=== PATIENT | male | born 1975 | race Caucasian/White ===

== ENCOUNTER 2020-02-24 07:57 | Observation (INO) | payer OTHER ==
[2020-02-24] MEDS ORDERED: HEPARIN SODIUM,PORCINE 5,000 UNIT/ML 1 ML VIAL IV ONE (08:17)
[2020-02-24] MEDS ORDERED: HEPARIN SODIUM,PORCINE 5,000 UNIT/ML 1 ML VIAL IV PRN (08:17)
[2020-02-24] MEDS ORDERED: DILTIAZEM DRIP BOLUS FROM BAG 1 MG SOLN IV ONE (08:17)
[2020-02-24] MEDS ORDERED: SODIUM CHLORIDE 0.9% 500 ML 500 ML IV STA (08:17)
[2020-02-24] MEDS ORDERED: ASPIRIN 81 MG PO STA (08:17)
--- NOTE | 2020-02-24 08:23 | ED ---
Chest Pain HPI - General Source: patient, RN notes reviewed Mode of arrival: ambulatory Limitations: no limitations <Mundo Esqueda - Last Filed: 02/24/20 09:29> <Missy Dumont - Last Filed: 02/28/20 14:41> - General Chief Complaint: Chest Pain Stated Complaint: Shortness of Breath Time Seen by Provider: 02/24/20 08:09 - History of Present Illness Initial Comments: This is a 44-year-old male presents emergency Department chief complaint palpitations, discomfort. Patient states that symptoms started around 7:30 this morning. He states that he has no history of A. fib he has no prior cardiac disease other than he has a history of hypertension and family heart disease. Patient states she is scheduled for a stress test next week. Patient states this was just provided. Patient denies any abdominal pain, leg pain, leg swelling. Patient states he does take Zoloft currently. Patient denies any fevers chills no cough or cold-like symptoms. (Mundo Esqueda) - Related Data Home Medications Medication Instructions Recorded Confirmed Sertraline HCl [Zoloft] 50 mg PO DAILY 02/24/20 02/24/20 Previous Rx's Medication Instructions Recorded Apixaban [Eliquis] 5 mg PO BID 30 Days #60 tab 02/24/20 Acetaminophen Tab [Tylenol] 650 mg PO Q6HR PRN tab 02/26/20 Flecainide [Tambocor] 100 mg PO Q12HR #180 tab 02/26/20 Metoprolol Succinate (ER) [Toprol 50 mg PO DAILY #90 tab.er.24h 02/26/20 XL] Nitroglycerin Sl Tabs [Nitrostat] 0.4 mg SUBLINGUAL Q5M PRN #30 tab 02/26/20 amLODIPine [Norvasc] 10 mg PO DAILY 30 Days #30 tab 02/26/20 Allergies Allergy/AdvReac Type Severity Reaction Status Date / Time No Known Allergies Allergy Verified 02/24/20 08:43 Review of Systems ROS Other: All systems not noted in ROS Statement are negative. <Mundo Esqueda - Last Filed: 02/24/20 09:29> ROS Other: All systems not noted in ROS Statement are negative. <Missy Dumont - Last Filed: 02/28/20 14:41> ROS Statement: Those systems with pertinent positive or pertinent negative responses have been documented in the HPI. EKG Findings - EKG Comments: EKG Findings:: EKG performed at 8:13 A. fib with RVR left axis deviation with a rate of 144 QRS 100 QT/QTC 324/501 <YinMundo Boswell - Last Filed: 02/24/20 09:29> Past Medical History Past Medical History: No Reported History History of Any Multi-Drug Resistant Organisms: None Reported Past Surgical History: No Surgical Hx Reported Past Psychological History: Anxiety Smoking Status: Never smoker Past Alcohol Use History: None Reported Past Drug Use History: None Reported <Mundo Esqueda Andreia - Last Filed: 02/24/20 09:29> General Exam Limitations: no limitations General appearance: alert, in no apparent distress, other (Vitals reviewed, sebastien crawford is hypertensive and tachycardic) Head exam: Present: atraumatic, normocephalic, normal inspection Eye exam: Present: normal appearance, PERRL, EOMI. Absent: scleral icterus, conjunctival injection, periorbital swelling ENT exam: Present: normal exam, mucous membranes moist Neck exam: Present: normal inspection. Absent: tenderness, meningismus, lymphadenopathy Respiratory exam: Present: normal lung sounds bilaterally. Absent: respiratory distress, wheezes, rales, rhonchi, stridor Cardiovascular Exam: Present: tachycardia, irregular rhythm, normal heart sounds. Absent: regular rate, normal rhythm, systolic murmur, diastolic murmur, rubs, gallop, clicks GI/Abdominal exam: Present: soft, normal bowel sounds. Absent: distended, tenderness, guarding, rebound, rigid Extremities exam: Absent: pedal edema, calf tenderness Neurological exam: Present: alert, oriented X3, CN II-XII intact Skin exam: Present: warm, dry, intact, normal color. Absent: rash <YinMundo Boswell - Last Filed: 02/24/20 09:29> Course Vital Signs 02/24/20 02/24/20 02/24/20 08:04 08:19 08:40 Temperature 98.2 F Pulse Rate 111 H 134 H 117 H Pulse Rate [ Left] Respiratory 22 24 20 Rate Blood Pressure 171/119 162/118 159/111 Blood Pressure [Left Arm] O2 Sat by Pulse 100 98 97 Oximetry 11/02/24/20 02/24/20 09:11 09:13 09:58 Temperature Pulse Rate 113 H 96 Pulse Rate [ Left] Respiratory 24 16 Rate Blood Pressure 166/117 Blood Pressure [Left Arm] O2 Sat by Pulse 99 Oximetry 02/24/20 02/24/20 02/24/20 10:10 10:17 10:28 Temperature Pulse Rate 122 H 109 H 103 H Pulse Rate [ Left] Respiratory 22 20 16 Rate Blood Pressure 141/106 130/102 Blood Pressure [Left Arm] O2 Sat by Pulse 99 99 Oximetry 02/24/20 02/24/20 02/24/20 10:35 10:43 11:24 Temperature 97.7 F Pulse Rate 98 Pulse Rate [ 71 Left] Respiratory 16 16 Rate Blood Pressure 129/102 138/96 Blood Pressure 146/102 [Left Arm] O2 Sat by Pulse 98 99 Oximetry Chest Pain MDM <Mundo Esqueda - Last Filed: 02/24/20 09:29> <Missy Dumont - Last Filed: 02/28/20 14:41> - MDM 44-year-old male presented for palpitations chest discomfort area patient has evidence of A. fib RVR new onset. Patient's troponin is negative. Patient will be admitted for cardiology evaluation, further management and treatment. (Mundo Esqueda) I was available for consultation in the emergency department. The history and physical exam were done by the midlevel provider. I was consulted for this patients care. I reviewed the case with the midlevel provider and based on their presentation of the patient, I agree with the assessment, medical decision making and plan of care as documented. Chart was dictated using Vocollect dictation software. Attempts were made to correct any dictation errors however some typographical errors may persist. Patient was seen during a national state of emergency due to the Covid-19 pandemic. (Missy Dumont) Critical Care Time Critical Care Time: Yes Total Critical Care Time: 35 <Mundo Esqueda - Last Filed: 02/24/20 09:29> Critical Care Time: Total 35 minutes of critical care time were used initially evaluated the patient, reviewed past medical history according of EKG, labs, chest x-ray. Patient found to be and A. fib, RVR. Patient was started on Cardizem with a 10 mg bolus. Patient was also started on heparin as this is a new onset of A. fib. Patient's heart rate is improving. Patient's troponin is negative. Patient's case discussed with her attending physician with consultation to cardiology. (Mundo Esqueda) Disposition <Mundo Esqueda - Last Filed: 02/24/20 09:29> <Missy Dumont - Last Filed: 02/28/20 14:41> Clinical Impression: Atrial fibrillation with RVR Disposition: ADMITTED IP TO THIS HOSP Condition: Fair
[2020-02-24] MEDS: HEPARIN SOD,PORK IN 0.45% NACL 25,000 UNIT in 0.45% NACL 1 250ML.BAG IV SCH (08:34)
[2020-02-24] MEDS: DILTIAZEM 125 MG in SODIUM CHLORIDE 0.9% 100 ML IV SCH ×2 (08:38→19:55)
--- NOTE | 2020-02-24 09:08 | XR ---
EXAMINATION TYPE: XR chest 2V DATE OF EXAM: 02/24/2020 COMPARISON: None INDICATION: Chest pain tachycardia dizzy TECHNIQUE: Frontal and lateral views of the chest are obtained. FINDINGS: The heart size is normal. The pulmonary vasculature is normal. The lungs are clear. IMPRESSION: 1. No acute pulmonary process.
[2020-02-24] MEDS ORDERED: NITROGLYCERIN SL TABS 0.4 MG TAB SUBLINGUAL PRN (09:30)
[2020-02-24 09:31] LABS: Basophils # (A) 0.1 k/uL (0-0.2); Basophils % (A) 1 %; Eosinophils # (A) 0.2 k/uL (0-0.7); Eosinophils % (A) 2 %; HCT 49.8 % (39.0-53.0); HGB 16.8 gm/dL (13.0-17.5); Lymphocytes # (A) 2.8 k/uL (1.0-4.8); Lymphocytes % (A) 30 %; MCH 29.4 pg (25.0-35.0); MCHC 33.8 g/dL (31.0-37.0); MCV 87.2 fL (80.0-100.0); Mean Platelet Volume 8.1; Monocytes # (A) 0.6 k/uL (0-1.0); Monocytes % (A) 7 %; Neutrophils # (A) 5.4 k/uL (1.3-7.7); Neutrophils % (A) 59 %; Platelet Count 352 k/uL (150-450); RBC 5.71 m/uL (4.30-5.90); WBC 9.3 k/uL (3.8-10.6)
[2020-02-24 09:33] LABS: INR 1.1 (<1.2); Partial Thromboplastin Time 30.4 sec (22.0-30.0); Prothrombin Time 11.3 sec (9.0-12.0)
[2020-02-24 09:51] LABS: ALT 67 U/L (4-49); AST 54 U/L (17-59); African American GFR (CKD) >90 (>60 ml/min/1.73 sqM); Albumin 4.6 g/dL (3.5-5.0); Alkaline Phosphatase 81 U/L (38-126); Anion Gap 12 mmol/L; Blood Urea Nitrogen 12 mg/dL (9-20); Carbon Dioxide 22 mmol/L (22-30); Chloride 106 mmol/L (98-107); Glucose 90 mg/dL (74-99); Magnesium 1.9 mg/dL (1.6-2.3); Non-African American GFR(CKD) 81 (>60 ml/min/1.73 sqM); Potassium 3.5 mmol/L (3.5-5.1); Sodium 140 mmol/L (137-145); Total Bilirubin 0.7 mg/dL (0.2-1.3)
[2020-02-24] MEDS ORDERED: NITROGLYCERIN SL TABS 0.4 MG TAB SUBLINGUAL STA (10:00)
[2020-02-24] MEDS ORDERED: LORazepam 2 MG/ML INJ IV STA (10:09)
[2020-02-24] MEDS: METOPROLOL SUCCINATE (ER) 50 MG TAB.ER.24H PO SCH (12:30)
--- NOTE | 2020-02-24 13:16 | CONS ---
CONSULTATION CHIEF COMPLAINT: Palpitations. Seferino is a 44-year-old gentleman with history of hypertension who came to hospital with retained palpitations. There was sudden onset, moderate to severe intensity at rest, came to the ER where he was found to be in atrial fibrillation with rapid ventricular rate and he is admitted to hospital for the same and Cardiology has been consulted. At the time of my evaluation, patient appears comfortable at rest. Denies chest pain, difficulty in breathing, dizziness, syncope or focal neurological deficits. He has had cardiac enzymes that are negative. EKG shows atrial fibrillation with RVR. His blood pressure is severely elevated. PAST MEDICAL HISTORY: Significant for hypertension. There is one other episode of atrial fibrillation. MEDICATIONS: Include aspirin and Zoloft. FAMILY HISTORY: Negative for premature coronary artery disease. SOCIAL HISTORY: Negative for current smoking, ETOH abuse or drug abuse. REVIEW OF SYSTEMS: HEENT: Unremarkable. CARDIAC: As described above. RESPIRATORY: As described above. GI: Negative. GENITOURINARY: Negative. ALLERGY/IMMUNOLOGY: Negative. SKIN: Negative. MUSCULOSKELETAL: Significant for arthritis. PSYCHOSOCIAL: Negative ENDOCRINE: Negative. ONCOLOGICAL: Negative. DIETITIAN TEACHER: Negative. PHYSICAL EXAM: Heart rate is 98 beats per minute, blood pressure is 132/96, respiratory 16, O2 saturation is 97% on 2 L. There is no jugular venous distention. Carotid upstroke is diminished. There is no bruit chest exam reveals good air entry bilaterally heart exam reveals first and second heart sounds, irregular rhythm. No murmur. Abdomen is soft, nontender. Exam of extremities did not reveal any edema. Peripheral pulses are felt. LABS: Show that the hemoglobin is 16.8, potassium is 3.5, creatinine is 1.1. ASSESSMENT: Paroxysmal atrial fibrillation with rapid ventricular rate. PLAN: 1. Will treat the patient with intravenous Cardizem, heparin. Check an echocardiogram and obtain a 2D echo to evaluate his LV function. If he has structurally normal heart, I might consider starting him on flecainide. 2. Hypertension. Blood pressure is poorly controlled. I am adding Toprol-XL and will adjust the medications as needed. MMODL / IJN: [id number] /
--- NOTE | 2020-02-24 16:42 | ECHOF ---
Referral Reason:new onset afib MEASUREMENTS -------- HEIGHT: 170.2 cm WEIGHT: 108.0 kg BP: 130/102 RVIDd: 3.0 cm (< 3.3) IVSd: 1.4 cm (0.6 - 1.1) LVIDd: 4.7 cm (3.9 - 5.3) LVPWd: 1.5 cm (0.6 - 1.1) IVSs: 2.0 cm LVIDs: 2.8 cm LVPWs: 1.8 cm LA Diam: 3.4 cm (2.7 - 3.8) Ao Diam: 3.5 cm (2.0 - 3.7) AV Cusp: 2.4 cm (1.5 - 2.6) MV EXCURSION: 20.130 mm (> 18.000) MV EF SLOPE: 138 mm/s (70 - 150) EPSS: 0.5 cm RAP: 5.00 mmHg RVSP: 29.32 mmHg FINDINGS -------- Atrial fibrillation. This was a technically difficult study with suboptimal apical views. The left ventricular size is normal. There is moderate concentric left ventricular hypertrophy. O verall left ventricular systolic function is normal with, an EF between 65 - 70 %. The right ventricle is normal in size. The left atrial size is normal. The right atrium is normal in size. 3 ml of Lumason was utilized for enhancement of images. Interatrial and interventricular septum intact. The aortic valve is trileaflet and appears structurally normal. The mitral valve is normal. Mild tricuspid regurgitation present. Right ventricular systolic pressure is normal at < 35 mmHg. Trace/mild (physiologic) pulmonic regurgitation. The aortic root size is normal. Normal inferior vena cava with normal inspiratory collapse consistent with estimated right atrial pre ssure of 5 mmHg. There is no pericardial effusion. CONCLUSIONS -------- 1. The left ventricular size is normal. 2. There is moderate concentric left ventricular hypertrophy. 3. Overall left ventricular systolic function is normal with, an EF between 65 - 70 %. 4. 3 ml of Lumason was utilized for enhancement of images. 5. Mild tricuspid regurgitation present. 6. Trace/mild (physiologic) pulmonic regurgitation. 7. There is no pericardial effusion. [employer] TEAM MEMBER: Louise Cash RDCS
--- NOTE | 2020-02-24 20:13 | P.HPIM ---
History of Present Illness H&P Date: 02/24/20 Chief Complaint: Palpitations Patient is a 44-year-old male with a known history of hypertension currently not on any medications presents to ER with complaints of heart beating fast and palpitations started since morning and also felt dizzy and tingling consistently left arm. Patient did have to 3 episodes lasting about few minutes during the last 2 years but resolved by its own and patient never seek medical attention. Patient had worsening symptoms this morning which made him to come to ER. Patient was found to have atrial fibrillation with rapid rate. Patient denied any complaints of chest pain or shortness of breath. No nausea vomiting or abdominal pain or diarrhea. Denied any recent illnesses. No sick contacts or recent travel.. Patient does have family history of heart disease. Patient states that he is scheduled for stress test next week. on admission blood pressure was 162/118 and heart rate 134. Saturating well on room air. Laboratory data showed troponin x3 and proBNP 30 and TSH level 1.38 and potassium 3.5 hemoglobin 16.8 and WBC 9.3 and platelets 352 Patient was started Cardizem drip and heparin drip. Review of Systems Constitutional: Patient denies any fever or chills . No generalized weakness or weight loss. Abdomen: Patient denied nausea vomiting and diarrhea and abdominal pain. Cardiovascular: Patient denies any chest pain or short of breath . + palpitations. Respiratory: patient denied any cough or sputum production. No shortness of breath Neurologic: Patient denied any numbness or tingling headache. Musculoskeletal: Patient denies any complaints of joint swelling or deformity. Skin: Negative Psychiatric: Negative Endocrine: No heat or cold intolerance. No recent weight gain. Genitourinary: No dysuria or hematuria. All other 14 point ROS negative except the above Past Medical History Past Medical History: No Reported History History of Any Multi-Drug Resistant Organisms: None Reported Past Surgical History: No Surgical Hx Reported Past Psychological History: Anxiety Smoking Status: Never smoker Past Alcohol Use History: None Reported Past Drug Use History: None Reported Medications and Allergies Home Medications Medication Instructions Recorded Confirmed Type Apixaban [Eliquis] 5 mg PO BID 30 Days #60 tab 02/24/20 Rx Aspirin EC [Ecotrin Low Dose] 81 mg PO DAILY 02/24/20 02/24/20 History Sertraline HCl [Zoloft] 50 mg PO DAILY 02/24/20 02/24/20 History Allergies Allergy/AdvReac Type Severity Reaction Status Date / Time No Known Allergies Allergy Verified 02/24/20 08:43 Physical Exam Vitals: Vital Signs Temp Pulse Resp BP Pulse Ox 02/24/20 10:35 129/102 02/24/20 10:28 103 H 16 130/102 99 02/24/20 10:17 109 H 20 02/24/20 10:10 122 H 22 141/106 99 02/24/20 09:58 96 16 166/117 99 02/24/20 09:13 24 02/24/20 09:11 113 H 02/24/20 08:40 117 H 20 159/111 97 02/24/20 08:19 134 H 24 162/118 98 02/24/20 08:04 98.2 F 111 H 22 171/119 100 Intake and Output 02/23/20 02/24/20 02/24/20 22:59 06:59 14:59 Other: Weight 107.955 kg PHYSICAL EXAMINATION: Patient is lying in the bed comfortably, no acute distress, awake alert and oriented.. HEENT: Normocephalic. Neck is supple. Pupils reactive. Nostrils clear. Oral cavity is moist. Ears reveal no drainage. Neck reveals no JVD, carotid bruits, or thyromegaly. CHEST EXAMINATION: Trachea is central. Symmetrical expansion. Lung solorio clear to auscultation and percussion. CARDIAC: Normal S1, S2 with no gallops. No murmurs . irregular pulse ABDOMEN: Soft. Bowel sounds normal. No organomegaly. No abdominal bruits. Extremities: reveal no edema. No clubbing or cyanosis Neurologically awake, alert, oriented x3 with well-coordinated movements. No focal deficits noted Skin: No rash or skin lesions. Psychiatric: Coperative. Nonsuicidal Musculoskeletal: No joint swelling or deformity. Normal range of motion. Results CBC & Chem 7: 02/24/20 09:10 02/24/20 09:10 Labs: Abnormal Lab Results - Last 24 Hours (Table) 02/24/20 02/24/20 Range/Units 08:22 09:10 APTT 30.4 H (22.0-30.0) sec ALT 67 H (4-49) U/L Thrombosis Risk Factor Assmnt - DVT/VTE Prophylaxis DVT/VTE Prophylaxis: Pharmacologic Prophylaxis ordered Assessment and Plan Assessment: Atrial fibrillation with rapid regular rate. New onset Uncontrolled hypertension. Patient is not taking any medications at home Anxiety DVT prophylaxis patient is already on heparin drip. Plan: Patient will be continued on telemetry monitoring. Troponin x3 -. TSH is within normal limits. Continue with Cardizem drip and heparin drip and follow- up closely. Cardiology was consulted. TTE was ordered. Heart rate is better controlled with the patient remained in atrial fibrillation currently. Time with Patient: Greater than 30
[2020-02-24] MEDS ORDERED: ACETAMINOPHEN TAB 325 MG TAB PO PRN (22:01)
[2020-02-25] MEDS: HEPARIN SOD,PORK IN 0.45% NACL 25,000 UNIT in 0.45% NACL 1 250ML.BAG IV SCH (05:53)
[2020-02-25 07:34] LABS: Cholesterol 202 mg/dL (<200); HDL Cholesterol 44 mg/dL (40-60); LDL Cholesterol,Calculated 127 mg/dL (0-99); Triglycerides 153 mg/dL (<150)
[2020-02-25] MEDS: FLECAINIDE 50 MG TAB PO SCH ×2 (08:59→20:40)
[2020-02-25] MEDS: SERTRALINE 50 MG TAB PO SCH (09:00)
[2020-02-25] MEDS ORDERED: ASPIRIN 325 MG TAB PO SCH (09:00)
[2020-02-25] MEDS: APIXABAN 5 MG TAB PO SCH ×2 (09:00→20:40)
[2020-02-25] MEDS ORDERED: NON FORMULARY DRUG (Aspirin Ec 81 MG Tablet.Dr) PO SCH (09:00)
[2020-02-25] MEDS: METOPROLOL SUCCINATE (ER) 50 MG TAB.ER.24H PO SCH (09:00)
--- NOTE | 2020-02-25 09:54 | P.PN ---
Subjective Progress Note Date: 02/25/20 This is a pleasant 44-year-old gentleman who is seen in consultation yesterday by Dr. Torrez, he was found to have new onset atrial fibrillation with rapid ventricular response. He had an echocardiogram with Doppler study performed which revealed a normal ejection fraction. He continues this morning to be in atrial fibrillation, his heart rate is in the 70s to 80s. Overall the patient feels well, he denies any palpitations, no chest discomfort, no dizziness, no difficulty in breathing. Blood pressure 118/70 with a heart rate in the 60s, 96% on room air. Cholesterol 202, LDL 127, triglycerides 153 and HDL 44. Objective - Vital Signs Vital signs: Vital Signs Temp 97.8 F 02/25/20 08:14 Pulse 63 02/25/20 08:14 Resp 16 02/25/20 08:14 BP 118/77 02/25/20 08:14 Pulse Ox 96 02/25/20 08:14 Intake & Output 02/24/20 02/25/20 02/25/20 18:59 06:59 18:59 Intake Total 559.96 902.186 100 Balance 559.96 902.186 100 Weight 107.955 kg Intake: Intake, IV Titration 79.96 362.186 Amount Diltiazem 125 mg In 40 149.083 Sodium Chloride 0.9% 100 ml @ 10 MG/HR 10 mls/hr IV .[id number] RUMA Rx#: [id number] Heparin Sod,Pork in 0.45% 39.96 213.103 NaCl 25,000 unit In 0.45 % NaCl 1 250ml.bag @ 9.26 UNITS/KG/HR 9.997 mls/hr IV .Q24H RUMA Rx#: [id number] Oral 480 540 100 Other: # Voids 2 1 - Exam PHYSICAL EXAMINATION: GENERAL: 44-year-old gentleman in no acute distress at the time of my examination HEENT: Head is atraumatic, normocephalic. Pupils equal, round. Sclera anicteric. Conjunctiva are clear. Mucous membranes of the mouth are moist. Neck is supple. There is no elevated jugular venous pressure. No carotid bruit is heard. HEART EXAMINATION: S1 and S2 irregularly irregular CHEST EXAMINATION: Lungs are clear to auscultation and precussion. No chest wall tenderness is noted on palpation or with deep breathing. ABDOMEN: Soft, nontender. Bowel sounds are heard. No organomegaly noted. EXTREMITIES: 2+ peripheral pulses with no evidence of peripheral edema and no calf tenderness noted. NEUROLOGIC patient is awake, alert and oriented 3 . . - Labs CBC & Chem 7: 02/24/20 09:10 02/24/20 09:10 Labs: Abnormal Lab Results - Last 24 Hours (Table) 02/24/20 02/24/20 02/25/20 Range/Units 09:10 15:44 07:05 APTT 44.7 H (22.0-30.0) sec ALT 67 H (4-49) U/L Triglycerides 153 H (<150) mg/dL Cholesterol 202 H (<200) mg/dL LDL Cholesterol, Calc 127 H (0-99) mg/dL 02/25/20 Range/Units 07:05 APTT 48.7 H (22.0-30.0) sec ALT (4-49) U/L Triglycerides (<150) mg/dL Cholesterol (<200) mg/dL LDL Cholesterol, Calc (0-99) mg/dL Assessment and Plan Plan: Assessment and plan #1 atrial fibrillation with rapid ventricular response, paroxysmal #2 hypertension Plan We will discontinue the IV Cardizem, start the patient on flecainide 100 mg one tablet by mouth twice a day. Discontinue IV heparin and initiate Eliquis 5 mg one tablet by mouth twice a day. We will also check on coverage regarding the Eliquis. We will continue to monitor the patient for 24 hours. DNP note has been reviewed, I agree with a documented findings and plan of care. Patient was seen and examined.
--- NOTE | 2020-02-25 15:03 | P.PN ---
Subjective Progress Note Date: 02/25/20 Patient is a 44-year-old male with a known history of hypertension currently not on any medications presents to ER with complaints of heart beating fast and palpitations started since morning and also felt dizzy and tingling consistently left arm. Patient did have to 3 episodes lasting about few minutes during the last 2 years but resolved by its own and patient never seek medical attention. Patient had worsening symptoms this morning which made him to come to ER. Patient was found to have atrial fibrillation with rapid rate. Patient denied any complaints of chest pain or shortness of breath. No nausea vomiting or abdominal pain or diarrhea. Denied any recent illnesses. No sick contacts or recent travel.. Patient does have family history of heart disease. Patient states that he is scheduled for stress test next week. on admission blood pressure was 162/118 and heart rate 134. Saturating well on room air. Laboratory data showed troponin x3 and proBNP 30 and TSH level 1.38 and potass ium 3.5 hemoglobin 16.8 and WBC 9.3 and platelets 352 Patient was started Cardizem drip and heparin drip. 02/25/2020 Patient is seen and evaluated in follow-up with no acute overnight issues. Nancy ent was originally on a Cardizem drip and heparin drip and has been discontinued and patient was initiated on Flecainide, toprol XL, and eliquis. Patient states he feels fatigued and denies any chest pain or shortness of breath. Patient is currently sinus bradycardia on the monitor. Patient denies any dizziness or feelings of passing out. Patient underwent an echo yesterday showing moderate concentric left ventricular hypertrophy with atrial fibrillation and overall left ventricular systolic function is normal with an EF of 65-70%. There was also some mild tricuspid regurgitation along with a trace and mild physiologic pulmonic regurgitation present. Review of systems: Constitutional: Reports some fatigue, no reports of fever, or chills Cardiovascular: No reports of chest pain or palpitations, reports occasional dizziness with position changes Respiratory: No reports of shortness of breath or cough GI: No reports of nausea, vomiting, or diarrhea : No reports of dysuria or retention Neurovascular: No reports of weakness or numbness All medications have been reviewed Objective - Vital Signs Vital signs: Vital Signs Temp 97.8 F 02/25/20 08:14 Pulse 44 L 02/25/20 10:10 Resp 16 02/25/20 09:00 BP 111/75 02/25/20 10:10 Pulse Ox 96 02/25/20 08:14 Intake & Output 02/24/20 02/25/20 02/25/20 18:59 06:59 18:59 Intake Total 559.96 902.186 100 Balance 559.96 902.186 100 Weight 107.955 kg Intake: Intake, IV Titration 79.96 362.186 Amount Diltiazem 125 mg In 40 149.083 Sodium Chloride 0.9% 100 ml @ 10 MG/HR 10 mls/hr IV .[id number] RUMA Rx#: [id number] Heparin Sod,Pork in 0.45% 39.96 213.103 NaCl 25,000 unit In 0.45 % NaCl 1 250ml.bag @ 9.26 UNITS/KG/HR 9.997 mls/hr IV .Q24H RUMA Rx#: [id number] Oral 480 540 100 Other: # Voids 2 1 1 - Exam Patient is sitting up in the bed comfortably, no acute distress, awake alert and oriented.. HEENT: Normocephalic. Neck is supple. Pupils reactive. Nostrils clear. Oral cavity is moist. Ears reveal no drainage. Neck reveals no JVD, carotid bruits, or thyromegaly. CHEST EXAMINATION: Trachea is central. Symmetrical expansion. Lung solorio clear to auscultation and percussion. CARDIAC: Normal S1, S2 with no gallops. No murmurs ABDOMEN: Soft. Bowel sounds normal. No organomegaly. No abdominal bruits. Extremities: reveal no edema. No clubbing or cyanosis Neurologically awake, alert, oriented x3 with well-coordinated movements. No focal deficits noted Skin: No rash or skin lesions. Psychiatric: Cooperative. Non-suicidal Musculoskeletal: No joint swelling or deformity. Normal range of motion. - Labs CBC & Chem 7: 02/24/20 09:10 02/24/20 09:10 Labs: Abnormal Lab Results - Last 24 Hours (Table) 02/24/20 02/25/20 02/25/20 Range/Units 15:44 07:05 07:05 APTT 44.7 H 48.7 H (22.0-30.0) sec Triglycerides 153 H (<150) mg/dL Cholesterol 202 H (<200) mg/dL LDL Cholesterol, Calc 127 H (0-99) mg/dL Assessment and Plan Assessment: Atrial fibrillation with rapid regular rate. New onset Uncontrolled hypertension. Patient is not taking any medications at home Anxiety DVT prophylaxis- eliquis GI prophylaxis Plan: To continue current medications, management, and telemetry monitoring. Patient is currently sinus bradycardia on the monitor. Cardiology following. Cardizem and heparin drip have been discontinued and patient was initiated on Flecanide, Toprol XL, and Eliquis. Eliquis was verified and covered by insurance. Patient underwent 2-D echo as mentioned previously and will be following up with cardiology in the outpatient setting along with primary care provider. Will continue to monitor vital signs closely. Anticipate discharge in 24 hours.
[2020-02-26] MEDS: FLECAINIDE 50 MG TAB PO SCH (08:00)
[2020-02-26] MEDS: APIXABAN 5 MG TAB PO SCH (08:00)
[2020-02-26] MEDS: METOPROLOL SUCCINATE (ER) 50 MG TAB.ER.24H PO SCH (08:00)
[2020-02-26] MEDS: SERTRALINE 50 MG TAB PO SCH (08:01)
[2020-02-26 08:29] VITALS: BP 150/106; PULSE 56; RESP 16; TEMP 98.1
[2020-02-26] MEDS ORDERED: amLODIPine 10 MG TAB PO SCH (09:45)
--- NOTE | 2020-02-26 10:42 | CONS ---
CONSULTATION This is a 44-year-old gentleman that is admitted to hospital with atrial fibrillation with rapid ventricular rate. The patient at home was on Toprol-XL, aspirin and sotalol. I started him on flecainide following which he converted to sinus rhythm and stayed in sinus rhythm with sinus bradycardia with a heart rate of around 50 beats per minute. His QRS which on initial presentation of 100 milliseconds has gone up to 108 and has remained stable at that. He had an echocardiogram that showed normal LV systolic function with mild concentric left ventricular hypertrophy. This morning he is doing well. We should be able to discharge him home and arrange an outpatient followup on Sunday and he is going to have an outpatient stress test done to rule out ischemic heart disease. PHYSICAL EXAM: He is comfortable at rest. Heart rate is 56 beats per minute. Blood pressure is 150/90, respiratory rate is 18. There is no jugular venous distention. Carotid upstroke is normal. There is no bruit. Chest exam reveals good air entry bilaterally. Heart exam reveals first and second heart sounds. No gallop. Exam of extremities did not reveal any edema. Peripheral pulses are felt. ASSESSMENT: 1. Hypertension. 2. Paroxysmal atrial fibrillation. PLAN: I will add amlodipine 10 mg daily for blood pressure control. We can discharge him home. Outpatient followup on Sunday as he will have an outpatient stress test at discharge. MMODL / IJN: [id number] /
[2020-02-26 11:30] LABS: Glucose,Whole Blood 112 mg/dL (75-99)
--- NOTE | 2020-02-26 12:46 | P.DS ---
Providers Date of admission: 02/24/20 09:30 Expected date of discharge: 02/26/20 Attending physician: Kurtis Haq Consults: 02/24/20 09:30 Consult Physician Urgent Consulting Provider: Carline Doll Consult Reason/Comments: new onset afib Do you want consulting provider notified?: Yes Primary care physician: Annamarie Ling [facility] Course: Final diagnosis Atrial fibrillation with rapid regular rate. New onset Uncontrolled hypertension. Patient is not taking any medications at home Anxiety DVT prophylaxis- eliquis GI prophylaxis Discharge disposition Patient is being discharged in a stable condition with guarded prognosis to home. Patient will follow-up with Dr. Ling upon discharge. Patient also follow-up with Dr. Rogelio jon on Sunday. Total time taken is 35 minutes. History of present illness This is an 44-year-old male who was recently admitted with palpitations and irregular heart rate and rhythm and also feelings of dizziness and tingling of the left arm and was being closely monitored. Patient was found to be in A. fib with RVR. Patient was initiated on a Cardizem and heparin drip. Patient was evaluated and followed with cardiology and underwent an echo showing overall left ventricular function is normal with an EF between 65 and 70%. Patient was initiated on flecanide along with Toprol and eliquis. Patient will follow up with cardiology on Sunday as scheduled and have an outpatient stress test performed. Patient also instructed to follow-up with primary care provider to discuss changes in treatment plan and medications. Patient's blood pressure continued to be elevated and was initiated on amlodipine 10 mg daily and a prescription was provided. Patient was having some feelings of dizziness with position changes and instructed to sit at the side of the bed or chair for 1-2 minutes before getting up and standing. Patient instructed to keep a diary of blood pressure readings along with heart rate for cardiology and primary follow- up this week. Currently no reports of chest pain, shortness of breath, or palpitations. Patient is afebrile. No reports of nausea or vomiting and patient is tolerating diet. Patient will be discharged home today. On exam vital signs are stable. Temp is 98.1F, pulse is 56, respirations are 16, blood pressure is 150/106, oxygen saturation is 94% on room air. Cardio S1, S2 are muffled. Respiratory shows clear to auscultation. Abdomen is soft, obese, and nontender. Nervous system shows no focal deficits. Please refer to medication reconciliation sheet for a list of medications. Patient Condition at Discharge: Fair Plan - Discharge Summary Discharge Rx Participant: No New Discharge Prescriptions: New Apixaban [Eliquis] 5 mg PO BID 30 Days #60 tab Flecainide [Tambocor] 100 mg PO Q12HR #180 tab Metoprolol Succinate (ER) [Toprol XL] 50 mg PO DAILY #90 tab.er.24h Nitroglycerin Sl Tabs [Nitrostat] 0.4 mg SUBLINGUAL Q5M PRN #30 tab PRN Reason: Chest Pain amLODIPine [Norvasc] 10 mg PO DAILY 30 Days #30 tab Acetaminophen Tab [Tylenol] 650 mg PO Q6HR PRN tab PRN Reason: Fever And/ Or Pain Continue Sertraline HCl [Zoloft] 50 mg PO DAILY Discontinued Aspirin EC [Ecotrin Low Dose] 81 mg PO DAILY Discharge Medication List Apixaban [Eliquis] 5 mg PO BID 30 Days #60 tab 02/24/20 [Rx] Sertraline HCl [Zoloft] 50 mg PO DAILY 02/24/20 [History] Acetaminophen Tab [Tylenol] 650 mg PO Q6HR PRN tab 02/26/20 [Rx] Flecainide [Tambocor] 100 mg PO Q12HR #180 tab 02/26/20 [Rx] Metoprolol Succinate (ER) [Toprol XL] 50 mg PO DAILY #90 tab.er.24h 02/26/20 [Rx] Nitroglycerin Sl Tabs [Nitrostat] 0.4 mg SUBLINGUAL Q5M PRN #30 tab 02/26/20 [Rx] amLODIPine [Norvasc] 10 mg PO DAILY 30 Days #30 tab 02/26/20 [Rx] Follow up Appointment(s)/Referral(s): Annamarie Ling MD [Primary Care Provider] - 1-2 days Kulwinder Mercado MD [STAFF PHYSICIAN] - 03/01/20 9:30 am Activity/Diet/Wound Care/Special Instructions: Activity Limited until follow-up Follow-up with primary care provider upon discharge Keep cardiology appointment and follow-up on Sunday Continue to monitor blood pressure and heart rate and keep a diary for primary care along with cardiology follow-up Continue current diet Continue to get up slowly with position changes and sit prior to standing for 1- 2 minutes Discharge Disposition: HOME SELF-CARE
[2020-02-26] MEDS ORDERED: FLECAINIDE 50 MG TAB PO SCH (21:00)
== END 2020-02-26 13:22 | disposition home or self-care (01) ==
LOC: EC 07:57 → 3NCARDOBS 09:30 → 1SOBS 02-25 16:34
PROVIDERS: ADMIT Internal Medicine; ATTEND Internal Medicine
DX: I48.0 Paroxysmal atrial fibrillation (principal); I10 Essential (primary) hypertension; F41.9 Anxiety disorder, unspecified; I51.7 Cardiomegaly; Z82.49 Family history of ischemic heart disease and other diseases of the circulatory system; Z79.01 Long term (current) use of anticoagulants; Z79.82 Long term (current) use of aspirin; Z79.899 Other long term (current) drug therapy
CPT/HCPCS: 93005 ×3; 96366 ×3; 96376; 96365 ×2; 96375; 99285; 36415; 83880; 80061; 80053; 84443; 83735; 84484; 85025; 85610; 85730 ×2; 71046; G0378 ×4; C8929; J2060; J1644 ×3; Q9950; 93306

== ENCOUNTER 2020-04-03 11:33 | Emergency (ER) | payer OTHER ==
[2020-04-03 11:42] VITALS: TEMP 98.5
--- NOTE | 2020-04-03 12:30 | XR ---
EXAMINATION TYPE: XR chest 2V DATE OF EXAM: 04/03/2020 COMPARISON: 02/24/2020 HISTORY: 44-year-old male dysrhythmia TECHNIQUE: PA and lateral views FINDINGS: The cardiomediastinal silhouette, aorta, and pulmonary vasculature are within normal limits. Lungs an d pleural spaces are clear. IMPRESSION: No acute cardiopulmonary process.
--- NOTE | 2020-04-03 12:35 | ED ---
General Adult HPI - General Chief complaint: Arrhythmia/Palpitations Stated complaint: Irregular heart beat Time Seen by Provider: 04/03/20 11:40 Source: patient, family, RN notes reviewed, old records reviewed Mode of arrival: ambulatory Limitations: no limitations - History of Present Illness Initial comments: This is a 44-year-old male who presents emergency department with past medical history significant for atrial fibrillation and anxiety. Patient states he [place] [employer] and a reduced his metoprolol from 50-25 and since then he's been having some sensation that his heart was racing. Today he woke up and he felt his heart was racing and he was quite anxious. [place] short of breath. He came to the emergency department. Patient denies any chest pain. Patient denies any recent fever chills or cough. Patient denies abdominal pain. Patient starts vomiting diarrhea. Patient denies headache patient denies numbness weakness. Patient denies any swelling to legs or calf tenderness. Patient states he did take his medications today. Patient is also on eliquis. - Related Data Home Medications Medication Instructions Recorded Confirmed Flecainide [Tambocor] 50 mg PO Q12HR 04/03/20 04/03/20 Metoprolol Succinate (ER) [Toprol 25 mg PO DAILY 04/03/20 04/03/20 XL] Omeprazole 20 mg PO DAILY 04/03/20 04/03/20 Sucralfate [Carafate] 1 gm PO TID-W/MEALS 04/03/20 04/03/20 busPIRone HCl [Buspar] 10 mg PO BID 04/03/20 04/03/20 Previous Rx's Medication Instructions Recorded Apixaban [Eliquis] 5 mg PO BID 30 Days #60 tab 02/24/20 Nitroglycerin Sl Tabs [Nitrostat] 0.4 mg SUBLINGUAL Q5M PRN #30 tab 02/26/20 amLODIPine [Norvasc] 10 mg PO DAILY 30 Days #30 tab 02/26/20 Allergies Allergy/AdvReac Type Severity Reaction Status Date / Time No Known Allergies Allergy Verified 04/03/20 12:50 Review of Systems ROS Statement: Those systems with pertinent positive or pertinent negative responses have been documented in the HPI. ROS Other: All systems not noted in ROS Statement are negative. Past Medical History Past Medical History: Atrial Fibrillation, Hypertension History of Any Multi-Drug Resistant Organisms: None Reported Past Surgical History: No Surgical Hx Reported Past Anesthesia/Blood Transfusion Reactions: No Reported Reaction Past Psychological History: Anxiety Smoking Status: Never smoker Past Alcohol Use History: None Reported Past Drug Use History: None Reported General Exam - General Exam Comments Initial Comments: GENERAL: Patient is well-developed and well-nourished. Patient is nontoxic and well- hydrated and is in mild distress. ENT: Neck is soft and supple. No significant lymphadenopathy is noted. Oropharynx is clear. Moist mucous membranes. Neck has full range of motion without eliciting any pain. EYES: The sclera were anicteric and conjunctiva were pink and moist. Extraocular movements were intact and pupils were equal round and reactive to light. Eyelids were unremarkable. PULMONARY: Unlabored respirations. Good breath sounds bilaterally. CARDIOVASCULAR: Patient has an irregular rate and rhythm at a rate of 110. ABDOMEN: Soft and nontender with normal bowel sounds. No palpable organomegaly was noted. There is no palpable pulsatile mass. SKIN: Skin is clear with no lesions or rashes and otherwise unremarkable. NEUROLOGIC: Patient is alert and oriented x3. Cranial nerves II through XII are grossly intact. Motor and sensory are also intact. Normal speech, volume and content. Symmetrical smile. MUSCULOSKELETAL: Normal extremities with adequate strength and full range of motion. No lower extremity swelling or edema. No calf tenderness. LYMPHATICS: No significant lymphadenopathy is noted PSYCHIATRIC: Patient is moderately anxious Limitations: no limitations Course Vital Signs 04/03/20 04/03/20 04/03/20 11:39 12:33 13:36 Temperature 98.5 F Pulse Rate 102 H 98 109 H Respiratory 20 20 18 Rate Blood Pressure 141/97 119/78 105/83 O2 Sat by Pulse 98 99 98 Oximetry Medical Decision Making - Medical Decision Making EKG shows atrial fibrillation with rapid ventricular response at 106 bpm QRS is 118 QT interval 390 QTC is 518. Patient's EKG shows no ST segment elevation or depression. Patient heart rate would go up to 140 250 anytime he stood up and moved around. I gave the patient 2.5 mg of Lopressor IV and 12.5 oral of metoprolol. I spoke with Dr. Merino agreed to admit the patient admitted the patient I consult to cardiology. After patient was admitted he decided he did not want to stay and that he would follow-up as an outpatient. - Lab Data Result diagrams: 04/03/20 12:33 04/03/20 12:33 Lab Results 04/03/20 04/03/20 04/03/20 Range/Units 12:33 12:33 12:33 WBC 8.8 (3.8-10.6) k/uL RBC 5.29 (4.30-5.90) m/uL Hgb 15.9 (13.0-17.5) gm/dL Hct 45.6 (39.0-53.0) % MCV 86.1 (80.0-100.0) fL MCH 30.1 (25.0-35.0) pg MCHC 34.9 (31.0-37.0) g/dL RDW 12.8 (11.5-15.5) % Plt Count 299 (150-450) k/uL MPV 7.5 Neutrophils % 62 % Lymphocytes % 24 % Monocytes % 9 % Eosinophils % 2 % Basophils % 2 % Neutrophils # 5.4 (1.3-7.7) k/uL Lymphocytes # 2.1 (1.0-4.8) k/uL Monocytes # 0.8 (0-1.0) k/uL Eosinophils # 0.2 (0-0.7) k/uL Basophils # 0.2 (0-0.2) k/uL PT 10.2 (9.0-12.0) sec INR 1.0 (<1.2) APTT 34.0 H (22.0-30.0) sec Sodium 142 (137-145) mmol/L Potassium 3.5 (3.5-5.1) mmol/L Chloride 107 (98-107) mmol/L Carbon Dioxide 26 (22-30) mmol/L Anion Gap 9 mmol/L BUN 13 (9-20) mg/dL Creatinine 1.00 (0.66-1.25) mg/dL Est GFR (CKD-EPI)AfAm >90 (>60 ml/min/1.73 sqM) Est GFR (CKD-EPI)NonAf >90 (>60 ml/min/1.73 sqM) Glucose 90 (74-99) mg/dL Calcium 9.6 (8.4-10.2) mg/dL Magnesium 2.3 (1.6-2.3) mg/dL Total Bilirubin 0.8 (0.2-1.3) mg/dL AST 35 (17-59) U/L ALT 43 (4-49) U/L Alkaline Phosphatase 68 (38-126) U/L Troponin I (0.000-0.034) ng/mL Total Protein 8.1 (6.3-8.2) g/dL Albumin 4.7 (3.5-5.0) g/dL 04/03/20 Range/Units 12:33 WBC (3.8-10.6) k/uL RBC (4.30-5.90) m/uL Hgb (13.0-17.5) gm/dL Hct (39.0-53.0) % MCV (80.0-100.0) fL MCH (25.0-35.0) pg MCHC (31.0-37.0) g/dL RDW (11.5-15.5) % Plt Count (150-450) k/uL MPV Neutrophils % % Lymphocytes % % Monocytes % % Eosinophils % % Basophils % % Neutrophils # (1.3-7.7) k/uL Lymphocytes # (1.0-4.8) k/uL Monocytes # (0-1.0) k/uL Eosinophils # (0-0.7) k/uL Basophils # (0-0.2) k/uL PT (9.0-12.0) sec INR (<1.2) APTT (22.0-30.0) sec Sodium (137-145) mmol/L Potassium (3.5-5.1) mmol/L Chloride (98-107) mmol/L Carbon Dioxide (22-30) mmol/L Anion Gap mmol/L BUN (9-20) mg/dL Creatinine (0.66-1.25) mg/dL Est GFR (CKD-EPI)AfAm (>60 ml/min/1.73 sqM) Est GFR (CKD-EPI)NonAf (>60 ml/min/1.73 sqM) Glucose (74-99) mg/dL Calcium (8.4-10.2) mg/dL Magnesium (1.6-2.3) mg/dL Total Bilirubin (0.2-1.3) mg/dL AST (17-59) U/L ALT (4-49) U/L Alkaline Phosphatase (38-126) U/L Troponin I <0.012 (0.000-0.034) ng/mL Total Protein (6.3-8.2) g/dL Albumin (3.5-5.0) g/dL Critical Care Time Critical Care Time: Yes Total Critical Care Time: 35 Disposition Clinical Impression: Atrial fibrillation with rapid ventricular response Disposition: HOME SELF-CARE Additional Instructions: Patient should go back to taking 50 mg of metoprolol daily. Patient to return if he is having any new or worsening symptoms. Is patient prescribed a controlled substance at d/c from ED?: No Referrals: Annamarie Ling MD [Primary Care Provider] - 1-2 days Time of Disposition: 14:43
[2020-04-03] MEDS: LORazepam 2 MG/ML INJ IV STA ×2 (12:38→14:28)
[2020-04-03 12:44] LABS: Basophils # (A) 0.2 k/uL (0-0.2); Basophils % (A) 2 %; Eosinophils # (A) 0.2 k/uL (0-0.7); Eosinophils % (A) 2 %; HCT 45.6 % (39.0-53.0); HGB 15.9 gm/dL (13.0-17.5); Lymphocytes # (A) 2.1 k/uL (1.0-4.8); Lymphocytes % (A) 24 %; MCH 30.1 pg (25.0-35.0); MCHC 34.9 g/dL (31.0-37.0); MCV 86.1 fL (80.0-100.0); Mean Platelet Volume 7.5; Monocytes # (A) 0.8 k/uL (0-1.0); Monocytes % (A) 9 %; Neutrophils # (A) 5.4 k/uL (1.3-7.7); Neutrophils % (A) 62 %; Platelet Count 299 k/uL (150-450); RBC 5.29 m/uL (4.30-5.90); RDW 12.8 % (11.5-15.5); WBC 8.8 k/uL (3.8-10.6)
[2020-04-03 12:55] LABS: ALT 43 U/L (4-49); AST 35 U/L (17-59); African American GFR (CKD) >90 (>60 ml/min/1.73 sqM); Albumin 4.7 g/dL (3.5-5.0); Alkaline Phosphatase 68 U/L (38-126); Anion Gap 9 mmol/L; Blood Urea Nitrogen 13 mg/dL (9-20); Calcium 9.6 mg/dL (8.4-10.2); Carbon Dioxide 26 mmol/L (22-30); Chloride 107 mmol/L (98-107); Glucose 90 mg/dL (74-99); Magnesium 2.3 mg/dL (1.6-2.3); Non-African American GFR(CKD) >90 (>60 ml/min/1.73 sqM); Potassium 3.5 mmol/L (3.5-5.1); Sodium 142 mmol/L (137-145); Total Bilirubin 0.8 mg/dL (0.2-1.3); Total Protein 8.1 g/dL (6.3-8.2)
[2020-04-03 12:57] LABS: Prothrombin Time 10.2 sec (9.0-12.0)
[2020-04-03 13:37] VITALS: RESP 18
[2020-04-03] MEDS ORDERED: METOPROLOL TARTRATE 5 MG/5 ML VIAL IVP STA (14:12)
[2020-04-03] MEDS ORDERED: METOPROLOL TARTRATE 12.5 MG TAB PO STA (14:14)
[2020-04-03] MEDS ORDERED: LORazepam 2 MG/ML INJ IV STA (14:30)
[2020-04-03] MEDS ORDERED: NITROGLYCERIN SL TABS 0.4 MG TAB SUBLINGUAL PRN (14:44)
[2020-04-03 15:03] VITALS: BP 119/67; PULSE 95
[2020-04-03] MEDS ORDERED: FLECAINIDE 50 MG TAB PO SCH (21:00)
[2020-04-03] MEDS ORDERED: APIXABAN 5 MG TAB PO SCH (21:00)
[2020-04-03] MEDS ORDERED: busPIRone HCl 10 MG TAB PO SCH (21:00)
[2020-04-04] MEDS ORDERED: amLODIPine 10 MG TAB PO SCH (09:00)
[2020-04-04] MEDS ORDERED: NON FORMULARY DRUG (Omeprazole [Omeprazole] 20 MG Capsule.Dr) PO SCH (09:00)
[2020-04-04] MEDS ORDERED: ASPIRIN 325 MG TAB PO SCH (09:00)
[2020-04-04] MEDS ORDERED: METOPROLOL SUCCINATE (ER) 50 MG TAB.ER.24H PO SCH (09:00)
== END 2020-04-03 15:19 | disposition home or self-care (01) ==
LOC: EC 11:33
DX: I48.20 Chronic atrial fibrillation, unspecified (principal); I10 Essential (primary) hypertension; F41.9 Anxiety disorder, unspecified; Z79.899 Other long term (current) drug therapy
CPT/HCPCS: 36415; 93005; 80053; 83735; 84484; 85025; 85610; 85730; 71046; 99285; 96374; 96375; J2060

== ENCOUNTER → 2020-10-19 | Outpatient (CLI) | payer OTHER ==
--- NOTE | 2020-10-19 13:54 | P.STRESS ---
- Stress Test Note Stress Test Results/Findings: Exam Performed: stress echo exercise with con Exam Date: 10/19/20 Reason for Exam: HTN Height: 5 ft 7 in Weight: 103.419 kg Protocol: Red Stage: IV Duration of Exercise: 10:28 Resting Heart Rate: 63 Resting Blood Pressure: 141/81 Maximum Achieved Heart Rate: 157 Maximum Achieved Blood Pressure: 189/79 85% PMHR: 150 100% PMHR: 176 METS: 10.5 Technologist Comment: Stress Test Results/Findings: Baseline heart is 63 beats a minute, Baseline blood pressure 141/81 mmHg Patient exercised on a Red protocol for 10 a half minutes, achieving a peak heart rate of 157 beats a minute Mildly hypertensive response to exercise. Peak blood pressure 209/73 mmHg Baseline twelve-lead EKG showed sinus rhythm with an incomplete right bundle branch block pattern During exercise there was minimal to no widening of the QRS, patient is on flecainide At recovery regional global LV systolic function normal Impression Good exercise capacity No QRS widening with exercise No ECG or echocardiographic evidence for ischemia
== END | disposition home or self-care (01) ==
LOC: RADNMMAIN 09:07
PROVIDERS: ATTEND Internal Medicine Clinical Cardiac Electrophysiology
DX: I10 Essential (primary) hypertension (principal)
CPT/HCPCS: C8930; Q9950; 93351

== ENCOUNTER 2023-03-16 19:32 | Inpatient (IN) | payer OTHER ==
--- NOTE | 2023-03-16 20:05 | ED ---
Arrhythmia/Palpitations HPI - General Chief Complaint: Arrhythmia/Palpitations Stated Complaint: Afib Time Seen by Provider: 03/16/23 19:45 Source: patient Mode of arrival: ambulatory Limitations: no limitations - History of Present Illness Initial Comments: 47-year-old male with past medical history of hypertension and A. fib who presents to the emergency department with palpitations. Patient has a history of paroxysmal A. fib. States that early this morning he had sudden onset of palpitations which he could tell was A. fib. He was checking his heart rate at home and he was going anywhere from 130 to 160. He had associated pressure and mild shortness of breath. He has been taking all of his medications as prescribed without any missed doses. No recent medication changes. Does admit to recent upper respiratory symptoms including nasal congestion. He does have some notable swelling to his left upper eyelid but denies any ocular pain. No nausea or vomiting. Denies diarrhea. No other alleviating, precipitating or modifying factors - Related Data Home Medications Medication Instructions Recorded Confirmed Flecainide [Tambocor] 50 mg PO BID 04/03/20 03/16/23 Losartan [Cozaar] 25 mg PO HS 03/16/23 03/16/23 Metoprolol Succinate (ER) [Toprol 12.5 mg PO DAILY 03/16/23 03/16/23 Xl] Omeprazole Magnesium [PriLOSEC OTC] 20 mg PO DAILY 03/16/23 03/16/23 Previous Rx's Medication Instructions Recorded Apixaban [Eliquis] 5 mg PO BID 30 Days #60 tab 02/24/20 amLODIPine [Norvasc] 10 mg PO DAILY 30 Days #30 tab 02/26/20 Allergies Allergy/AdvReac Type Severity Reaction Status Date / Time No Known Allergies Allergy Verified 03/16/23 22:15 Review of Systems ROS Statement: Those systems with pertinent positive or pertinent negative responses have been documented in the HPI. ROS Other: All systems not noted in ROS Statement are negative. Past Medical History Past Medical History: Atrial Fibrillation, Hypertension History of Any Multi-Drug Resistant Organisms: None Reported Past Surgical History: No Surgical Hx Reported Past Anesthesia/Blood Transfusion Reactions: No Reported Reaction Past Psychological History: Anxiety Smoking Status: Never smoker Past Alcohol Use History: None Reported Past Drug Use History: None Reported General Exam Limitations: no limitations General appearance: alert, in no apparent distress Head exam: Present: atraumatic, normocephalic, normal inspection Eye exam: Present: normal appearance, PERRL, EOMI. Absent: scleral icterus, conjunctival injection, periorbital swelling ENT exam: Present: normal exam, mucous membranes moist Neck exam: Present: normal inspection. Absent: tenderness, meningismus, lymphadenopathy Respiratory exam: Present: normal lung sounds bilaterally. Absent: respiratory distress, wheezes, rales, rhonchi, stridor Cardiovascular Exam: Present: tachycardia, irregular rhythm, normal heart sounds. Absent: systolic murmur, diastolic murmur, rubs, gallop, clicks GI/Abdominal exam: Present: soft, normal bowel sounds. Absent: distended, tenderness, guarding, rebound, rigid Extremities exam: Present: normal inspection, full ROM, normal capillary refill. Absent: tenderness, pedal edema, joint swelling, calf tenderness Back exam: Present: normal inspection Neurological exam: Present: alert, oriented X3, CN II-XII intact Psychiatric exam: Present: normal affect, normal mood Skin exam: Present: warm, dry, intact, normal color. Absent: rash Course Vital Signs 03/16/23 03/16/23 03/16/23 19:38 19:42 19:55 Temperature 97.8 F Pulse Rate 165 H Pulse Rate [ 145 H Client Solutions Director ] Respiratory 24 Rate Blood Pressure 102/73 O2 Sat by Pulse 95 98 Oximetry 03/16/23 03/16/23 03/16/23 20:00 20:15 20:30 Temperature Pulse Rate 163 H 146 H 112 H Pulse Rate [ Client Solutions Director ] Respiratory 18 20 20 Rate Blood Pressure 99/80 99/80 143/84 O2 Sat by Pulse 99 Oximetry 03/16/23 03/16/23 03/16/23 20:45 21:00 21:15 Temperature Pulse Rate 111 H 117 H 102 H Pulse Rate [ Client Solutions Director ] Respiratory 18 18 18 Rate Blood Pressure 132/74 105/87 111/84 O2 Sat by Pulse 99 100 Oximetry 03/16/23 03/16/23 03/16/23 21:30 21:45 22:00 Temperature Pulse Rate 114 H 115 H 105 H Pulse Rate [ Client Solutions Director ] Respiratory 18 18 17 Rate Blood Pressure 117/79 118/90 118/92 O2 Sat by Pulse 100 98 99 Oximetry 03/16/23 22:15 Temperature Pulse Rate 101 H Pulse Rate [ Client Solutions Director ] Respiratory 18 Rate Blood Pressure 109/86 O2 Sat by Pulse 100 Oximetry Medical Decision Making - Medical Decision Making Was pt. sent in by a medical professional or institution (CARLYLE Mccray, PROJECT ECONOMIST, urgent care, hospital, or [place] health care facility...) When possible be specific @ -No Did you speak to anyone other than the patient for history (EMS, parent, family, police, friend...)? What history was obtained from this source @ -No Did you review nursing and triage notes (agree or disagree)? Why? @ -I reviewed and agree with nursing and triage notes Were old charts reviewed (outside hosp., previous admission, EMS record, old E KG, old radiological studies, urgent care reports/EKG's, [place] health care facility records)? Report findings @ -No old charts were reviewed Differential Diagnosis (chest pain, altered mental status, abdominal pain women, abdominal pain men, vaginal bleeding, weakness, fever, dyspnea, syncope, headache, dizziness, GI bleed, back pain, seizure, CVA, palpatations, mental hea lth, musculoskeletal)? @ -Differential Palpitations Ventricular arrhythmias, atrial arrhythmias, myocardial infarction, anemia, thyrotoxicosis, electrolyte imbalance, hypokalemia, pulmonary embolism, pulmonary disease, drugs, alcohol, anxiety, stress.... This is not meant to be an all-inclusive list. EKG interpreted by me (3pts min.). @ -First EKG completed at 1949 demonstrates A. fib with a rapid rate of 166. [place] interval 91. QRS 120. QTC of 354. No acute ST segment elevations or depressions. Some PVCs Second EKG completed at 2008 demonstrates A. fib with a rate of 123. QRS 104. QTC of 389. PVC present. No acute ST segment elevation or depression X-rays interpreted by me (1pt min.). @ -Yes and demonstrates no acute intrathoracic process CT interpreted by me (1pt min.). @ -None done U/S interpreted by me (1pt. min.). @ -None done What testing was considered but not performed or refused? (CT, X-rays, U/S, labs)? Why? @ -None What meds were considered but not given or refused? Why? @ -None Did you discuss the management of the patient with other professionals (professionals i.e. CARLYLE Mccray, PROJECT ECONOMIST, lab, RT, psych nurse, social work job titles, wet press tender, teacher, tactical deception plans officer, heel caser)? Give summary @ -spoke with Dr. haq who will admit patient as he has not converted in ED Was smoking cessation discussed for >3mins.? @ -No Was critical care preformed (if so, how long)? @ -35 minutes for cardizem management Were there social determinants of health that impacted care today? How? (Homelessness, low income, unemployed, alcoholism, drug addiction, transportation, low edu. Level, literacy, decrease access to med. care, longterm, rehab)? @ -No Was there de-escalation of care discussed even if they declined (Discuss DNR or withdrawal of care, Hospice)? DNR status @ -No What co-morbidities impacted this encounter? (DM, HTN, Smoking, COPD, CAD, Cancer, CVA, ARF, Chemo, Hep., AIDS, mental health diagnosis, sleep apnea, morbid obesity)? @ -afib Was patient admitted / discharged? Hospital course, mention meds given and route, prescriptions, significant lab abnormalities, going to OR and other pertinent info. @ -Admitted. Upon arrival patient was placed in room 2. Thorough history and physical exam was performed. IV is established. He is given a liter bolus of normal saline. Laboratory studies are conducted. Patient does have elevated white blood cell count at this time. Only source for infection is possible sinus as he is negative for Covid and denies all additional symptoms include abdominal pain, cough. Patient is placed on a Cardizem drip. He does have improvement in his heart rate however does not convert. Recommended admission for cardiology consultation. This was agreeable to this. Spoke with Dr. Haq who agreed to admit the patient. Patient awaiting a bed on the floor Undiagnosed new problem with uncertain prognosis? @ -No Drug Therapy requiring intensive monitoring for toxicity (Heparin, Nitro, Insulin, Cardizem)? @ -cardizem Were any procedures done? @ -No Diagnosis/symptom? @ -afib with rvr, leukocytosis Acute, or Chronic, or Acute on Chronic? @ -acute on chronic Uncomplicated (without systemic symptoms) or Complicated (systemic symptoms)? @ -complicated Side effects of treatment? @ -No Exacerbation, Progression, or Severe Exacerbation? @ -No Poses a threat to life or bodily function? How? (Chest pain, [place], [place], pneumonia, PE, COPD, DKA, ARF, appy, cholecystitis, CVA, Diverticulitis, Homicidal, Suicidal, threat to staff... and all critical care pts) @ -No - Lab Data Result diagrams: 03/16/23 20:16 03/16/23 20:16 Lab Results 03/16/23 03/16/23 03/16/23 Range/Units 20:16 20:16 20:16 WBC 24.6 H (3.8-10.6) k/uL RBC 5.17 (4.30-5.90) m/uL Hgb 15.4 (13.0-17.5) gm/dL Hct 45.3 (39.0-53.0) % MCV 87.6 (80.0-100.0) fL MCH 29.8 (25.0-35.0) pg MCHC 34.0 (31.0-37.0) g/dL RDW 12.8 (11.5-15.5) % Plt Count 293 (150-450) k/uL MPV 8.2 Neutrophils % 92 % Lymphocytes % 3 % Monocytes % 4 % Eosinophils % 0 % Basophils % 0 % Neutrophils # 22.7 H (1.3-7.7) k/uL Lymphocytes # 0.6 L (1.0-4.8) k/uL Monocytes # 1.0 (0-1.0) k/uL Eosinophils # 0.1 (0-0.7) k/uL Basophils # 0.1 (0-0.2) k/uL PT 12.2 (10.0-12.5) sec INR 1.1 (<1.2) APTT 35.0 H (22.0-30.0) sec Sodium 137 (137-145) mmol/L Potassium 3.8 (3.5-5.1) mmol/L Chloride 100 (98-107) mmol/L Carbon Dioxide 20 L (22-30) mmol/L Anion Gap 17 mmol/L BUN 19 (9-20) mg/dL Creatinine 1.37 H (0.66-1.25) mg/dL Est GFR (CKD-EPI)AfAm 71 (>60 ml/min/1.73 sqM) Est GFR (CKD-EPI)NonAf 62 (>60 ml/min/1.73 sqM) Glucose 96 (74-99) mg/dL Calcium 9.1 (8.4-10.2) mg/dL Magnesium 1.8 (1.6-2.3) mg/dL Total Bilirubin 1.7 H (0.2-1.3) mg/dL AST 40 (17-59) U/L ALT 27 (4-49) U/L Alkaline Phosphatase 73 (38-126) U/L Troponin I (0.000-0.034) ng/mL Total Protein 7.7 (6.3-8.2) g/dL Albumin 4.1 (3.5-5.0) g/dL TSH 1.380 (0.465-4.680) mIU/L Urine Color Urine Appearance (Clear) Urine pH (5.0-8.0) Ur Specific [place] (1.001-1.035) Urine Protein (Negative) Urine Glucose (UA) (Negative) Urine Ketones (Negative) Urine Blood (Negative) Urine Nitrite (Negative) Urine Bilirubin (Negative) Urine Urobilinogen (<2.0) mg/dL Ur Leukocyte Esterase (Negative) SARS-CoV-2 (PCR) (Not Detectd) 03/16/23 03/16/23 03/16/23 Range/Units 20:16 21:47 22:02 WBC (3.8-10.6) k/uL RBC (4.30-5.90) m/uL Hgb (13.0-17.5) gm/dL Hct (39.0-53.0) % MCV (80.0-100.0) fL MCH (25.0-35.0) pg MCHC (31.0-37.0) g/dL RDW (11.5-15.5) % Plt Count (150-450) k/uL MPV Neutrophils % % Lymphocytes % % Monocytes % % Eosinophils % % Basophils % % Neutrophils # (1.3-7.7) k/uL Lymphocytes # (1.0-4.8) k/uL Monocytes # (0-1.0) k/uL Eosinophils # (0-0.7) k/uL Basophils # (0-0.2) k/uL PT (10.0-12.5) sec INR (<1.2) APTT (22.0-30.0) sec Sodium (137-145) mmol/L Potassium (3.5-5.1) mmol/L Chloride (98-107) mmol/L Carbon Dioxide (22-30) mmol/L Anion Gap mmol/L BUN (9-20) mg/dL Creatinine (0.66-1.25) mg/dL Est GFR (CKD-EPI)AfAm (>60 ml/min/1.73 sqM) Est GFR (CKD-EPI)NonAf (>60 ml/min/1.73 sqM) Glucose (74-99) mg/dL Calcium (8.4-10.2) mg/dL Magnesium (1.6-2.3) mg/dL Total Bilirubin (0.2-1.3) mg/dL AST (17-59) U/L ALT (4-49) U/L Alkaline Phosphatase (38-126) U/L Troponin I <0.012 (0.000-0.034) ng/mL Total Protein (6.3-8.2) g/dL Albumin (3.5-5.0) g/dL TSH (0.465-4.680) mIU/L Urine Color [place] Urine Appearance Clear (Clear) Urine pH 6.0 (5.0-8.0) Ur Specific [place] 1.015 (1.001-1.035) Urine Protein Trace H (Negative) Urine Glucose (UA) Negative (Negative) Urine Ketones 2+ (Negative) Urine Blood Negative (Negative) Urine Nitrite Negative (Negative) Urine Bilirubin Negative (Negative) Urine Urobilinogen <2.0 (<2.0) mg/dL Ur Leukocyte Esterase Negative (Negative) SARS-CoV-2 (PCR) Not Detected (Not Detectd) Disposition Clinical Impression: Atrial fibrillation with RVR, Leukocytosis Disposition: ADMITTED IP TO THIS [facility] Condition: Stable Is patient prescribed a controlled substance at d/c from ED?: No Time of Disposition: 22:33 Decision to Admit Reason: Admit from EC Decision Date: 03/16/23 Decision Time: 22:33
[2023-03-16 21:04] LABS: Basophils # (A) 0.1 k/uL (0-0.2); Basophils % (A) 0 %; Eosinophils # (A) 0.1 k/uL (0-0.7); Eosinophils % (A) 0 %; HCT 45.3 % (39.0-53.0); HGB 15.4 gm/dL (13.0-17.5); Lymphocytes # (A) 0.6 k/uL (1.0-4.8); Lymphocytes % (A) 3 %; MCH 29.8 pg (25.0-35.0); MCV 87.6 fL (80.0-100.0); Mean Platelet Volume 8.2; Monocytes % (A) 4 %; Neutrophils # (A) 22.7 k/uL (1.3-7.7); Neutrophils % (A) 92 %; Platelet Count 293 k/uL (150-450); RBC 5.17 m/uL (4.30-5.90); RDW 12.8 % (11.5-15.5); WBC 24.6 k/uL (3.8-10.6)
[2023-03-16] MEDS ORDERED: DILTIAZEM DRIP BOLUS FROM BAG 1 MG SOLN IV ONE (21:16)
[2023-03-16] MEDS ORDERED: SODIUM CHLORIDE 0.9% 1,000 ML IV ONE (21:16)
[2023-03-16 21:18] LABS: ALT 27 U/L (4-49); AST 40 U/L (17-59); African American GFR (CKD) 71 (>60 ml/min/1.73 sqM); Albumin 4.1 g/dL (3.5-5.0); Alkaline Phosphatase 73 U/L (38-126); Anion Gap 17 mmol/L; Blood Urea Nitrogen 19 mg/dL (9-20); Calcium 9.1 mg/dL (8.4-10.2); Carbon Dioxide 20 mmol/L (22-30); Chloride 100 mmol/L (98-107); Glucose 96 mg/dL (74-99); Magnesium 1.8 mg/dL (1.6-2.3); Non-African American GFR(CKD) 62 (>60 ml/min/1.73 sqM); Potassium 3.8 mmol/L (3.5-5.1); Sodium 137 mmol/L (137-145); Total Bilirubin 1.7 mg/dL (0.2-1.3); Total Protein 7.7 g/dL (6.3-8.2)
[2023-03-16 21:23] LABS: INR 1.1 (<1.2); Prothrombin Time 12.2 sec (10.0-12.5)
[2023-03-16] MEDS: DILTIAZEM 125 MG in SODIUM CHLORIDE 0.9% 100 ML IV SCH (21:31)
--- NOTE | 2023-03-16 21:34 | XR ---
EXAMINATION TYPE: XR chest 2V DATE OF EXAM: 03/16/2023 8:36 PM CLINICAL INDICATION:Male, 47 years old with history of dysrhythmia; [facility] COMPARISON: 04/03/2020 TECHNIQUE: XR chest 2V. Frontal PA and lateral views of the chest. FINDINGS: Lines/Tubes: EKG leads overlie the chest. No indwelling lines are seen. Heart/mediastinum: Cardiomediastinal silhouette is well defined. Heart size is normal. Mediastinum appears normal. Pulmonary vascularity: Not increased, Lungs/Pleura: There is no evidence of pleural effusion, focal consolidation, or pneumothorax. Musculoskeletal: Mild degenerative changes of the spine and shoulders. No acute bony pathology sugge sted, in the limits of the exam. Other findings: None. IMPRESSION: No acute cardiopulmonary abnormality. No significant interval change.
[2023-03-16 22:26] LABS: Appearance,Urine Clear (Clear); Bilirubin,Urine Negative (Negative); Blood,Urine Negative (Negative); Color,Urine Amber; Glucose,Urine (UA) Negative (Negative); Ketones,Urine 2+ (Negative); Leukocyte Esterase,Urine Negative (Negative); Nitrite,Urine Negative (Negative); Protein,Urine Trace (Negative); Specific Gravity,Urine 1.015 (1.001-1.035); Urobilinogen,Urine <2.0 mg/dL (<2.0)
[2023-03-16] MEDS ORDERED: NALOXONE 0.4 MG/ML 1 ML VIAL IV PRN (22:33)
[2023-03-16] MEDS ORDERED: AMOXIC-POT CLAV 875-125MG 1 EACH TAB PO STA (23:38)
[2023-03-16] MEDS: APIXABAN 5 MG TAB PO SCH (23:52)
[2023-03-17 02:39] LABS: Basophils # (A) 0.1 k/uL (0-0.2); Basophils % (A) 0 %; Eosinophils % (A) 0 %; HCT 44.6 % (39.0-53.0); HGB 15.1 gm/dL (13.0-17.5); Lymphocytes # (A) 0.7 k/uL (1.0-4.8); Lymphocytes % (A) 4 %; MCH 29.7 pg (25.0-35.0); MCHC 33.8 g/dL (31.0-37.0); Mean Platelet Volume 8.2; Monocytes # (A) 1.2 k/uL (0-1.0); Monocytes % (A) 7 %; Neutrophils # (A) 15.5 k/uL (1.3-7.7); Neutrophils % (A) 87 %; Platelet Count 266 k/uL (150-450); RBC 5.07 m/uL (4.30-5.90); RDW 12.8 % (11.5-15.5); WBC 17.7 k/uL (3.8-10.6)
[2023-03-17 03:09] LABS: African American GFR (CKD) >90 (>60 ml/min/1.73 sqM); Anion Gap 14 mmol/L; Blood Urea Nitrogen 17 mg/dL (9-20); Calcium 8.5 mg/dL (8.4-10.2); Carbon Dioxide 20 mmol/L (22-30); Chloride 100 mmol/L (98-107); Glucose 82 mg/dL (74-99); Non-African American GFR(CKD) 80 (>60 ml/min/1.73 sqM); Potassium 3.6 mmol/L (3.5-5.1); Sodium 134 mmol/L (137-145)
[2023-03-17] MEDS: APIXABAN 5 MG TAB PO SCH ×2 (07:41→20:57)
[2023-03-17] MEDS: PANTOPRAZOLE 40 MG TABLET PO SCH (07:41)
[2023-03-17] MEDS ORDERED: ACETAMINOPHEN TAB 325 MG TAB PO STA (07:54)
[2023-03-17] MEDS ORDERED: METOPROLOL SUCCINATE (ER) 25 MG TAB.ER.24H PO SCH (09:00)
[2023-03-17] MEDS: DILTIAZEM 125 MG in SODIUM CHLORIDE 0.9% 100 ML IV SCH (10:04)
--- NOTE | 2023-03-17 10:52 | P.CRDCN ---
History of Present Illness History of present illness: HISTORY OF PRESENT ILLNESS: This is a 47-year-old male with a past medical history significant for hypertension and paroxysmal atrial fibrillation. Patient follows in the office with Dr. Smith. We have been asked to see the patient in consultation for A. fib with RVR. Patient examined at the bedside in the emergency room. The patient states a couple of days ago he noticed he had a fever up 102F. He denies having any upper respiratory symptoms. He was tested for Covid and was found to be negative. He reports he began having palpitations yesterday and he was back in atrial fibrillation. He states he took an extra dose of metoprolol but his palpitations persisted so he came to the emergency room. The patient was found to be in A. fib with RVR. He was started on IV Cardizem which is currently infusing at 5 mg an hour. He remains in atrial fibrillation at the time of examination with a heart rate in the 120s. He denies any chest pain or pressure. He denies any shortness of breath. * EKG reveals A. fib with RVR * Chest xray negative for acute process * Laboratory data: [facility] admission 24.6. Repeat 17.7. Troponin negative 3. TSH 1.380. * Current home cardiac medications include Eliquis 5 mg twice a day, flecainide 50 mg twice a day, amlodipine 10 mg daily, metoprolol succinate 12.5 mg daily, and losartan 25 mg at night * Most recent echocardiogram obtained in February 2020 revealed ejection fraction 65-70%, mild TR * Patient underwent stress echocardiogram in October 2020 was negative for ischemia REVIEW OF SYSTEMS: At the time of my exam: CONSTITUTIONAL: Denies fever or chills. HEENT: Denies blurred vision, vision changes, or eye pain. Denies hemoptysis CARDIOVASCULAR: Denies chest pain. Denies orthopnea. Denies PND. Denies palpitations RESPIRATORY: Denies shortness of breath. GASTROINTESTINAL: Denies abdominal pain. Denies nausea or vomiting. HEMATOLOGIC: Denies bleeding disorders. GENITOURINARY: Denies any blood in urine. SKIN: Denies pruitis. Denies rash. PHYSICAL EXAM: VITAL SIGNS: Reviewed. GENERAL: Well-developed in no acute distress. HEENT: Head is normocephalic. Pupils are equal, round. Sclerae anicteric. Mucous membranes of the mouth are moist. Neck supple. No JVD or thyromegaly LUNGS: Respirations even and unlabored. Lungs essentially clear to auscultation bilaterally. HEART: Tachycardic. Irregular rate and rhythm. S1 and S2 heard. ABDOMEN: Soft. Nondistended. Nontender. EXTREMITIES: Normal range of motion. No clubbing or cyanosis. Peripheral p ulses intact. No lower extremity edema NEUROLOGIC: Awake and alert. Oriented x 3. ASSESSMENT: Palpitations Paroxysmal atrial fibrillation with RVR Leukocytosis with fever at home Hypertension PLAN: Obtain 2-D echo to assess cardiac structure and function Discontinue IV Cardizem Resume home cardiac medications Resume flecainide 50 mg twice a day Change beta henrietta to metoprolol tartrate 25 mg twice a day Continue telemetry monitoring Further recommendations pending patient's course Nurse practitioner note has been reviewed by physician. Signing provider agrees with the documented findings, assessment, and plan of care. Past Medical History Past Medical History: Atrial Fibrillation, Hypertension History of Any Multi-Drug Resistant Organisms: None Reported Past Surgical History: No Surgical Hx Reported Past Anesthesia/Blood Transfusion Reactions: No Reported Reaction Past Psychological History: Anxiety Smoking Status: Former smoker Past Alcohol Use History: None Reported Past Drug Use History: None Reported - Past Family History Mother Family Medical History: AFIB Medications and Allergies Home Medications Medication Instructions Recorded Confirmed Type Apixaban [Eliquis] 5 mg PO BID 30 Days #60 tab 02/24/20 03/16/23 Rx amLODIPine [Norvasc] 10 mg PO DAILY 30 Days #30 tab 02/26/20 03/16/23 Rx Flecainide [Tambocor] 50 mg PO BID 04/03/20 03/16/23 History Losartan [Cozaar] 25 mg PO HS 03/16/23 03/16/23 History Metoprolol Succinate (ER) [Toprol 12.5 mg PO DAILY 03/16/23 03/16/23 History Xl] Omeprazole Magnesium [PriLOSEC OTC] 20 mg PO DAILY 03/16/23 03/16/23 History Allergies Allergy/AdvReac Type Severity Reaction Status Date / Time No Known Allergies Allergy Verified 03/16/23 22:15 Physical Exam Vitals: Vital Signs Temp Pulse Pulse Resp BP BP Pulse Ox 03/17/23 09:55 98.9 F 99 18 112/70 95 03/17/23 09:21 110 H 20 140/68 98 03/17/23 08:57 110 H 20 121/62 95 03/17/23 07:43 115 H 20 117/87 98 03/17/23 06:00 106 H 25 H 106/64 96 03/17/23 02:11 106 H 18 127/77 99 03/16/23 22:15 101 H 18 109/86 100 03/16/23 22:00 105 H 17 118/92 99 03/16/23 21:45 115 H 18 118/90 98 03/16/23 21:30 114 H 18 117/79 100 03/16/23 21:15 102 H 18 111/84 100 03/16/23 21:00 117 H 18 105/87 03/16/23 20:45 111 H 18 132/74 99 03/16/23 20:30 112 H 20 143/84 03/16/23 20:15 146 H 20 99/80 03/16/23 20:00 163 H 18 99/80 99 03/16/23 19:55 98 03/16/23 19:42 145 H 03/16/23 19:38 97.8 F 165 H 24 102/73 95 Intake and Output 03/16/23 03/17/23 03/17/23 22:59 06:59 14:59 Intake Total 62.75 Balance 62.75 Intake: Intake, IV Titration 62.75 Amount Diltiazem 125 mg In 62.75 Sodium Chloride 0.9% 100 ml @ 5 MG/HR 5 mls/hr IV .Q24H [facility] Rx#:[id number] Other: Weight 101.151 kg 101.151 kg Results 03/17/23 02:07 03/17/23 02:07 Cardiac Enzymes 03/16/23 03/16/23 03/16/23 Range/Units 20:16 20:16 22:42 AST 40 (17-59) U/L Troponin I <0.012 <0.012 (0.000-0.034) ng/mL 03/17/23 Range/Units 02:07 AST (17-59) U/L Troponin I <0.012 (0.000-0.034) ng/mL Coagulation 03/16/23 Range/Units 20:16 PT 12.2 (10.0-12.5) sec APTT 35.0 H (22.0-30.0) sec CBC 03/16/23 03/17/23 Range/Units 20:16 02:07 WBC 24.6 H 17.7 H (3.8-10.6) k/uL RBC 5.17 5.07 (4.30-5.90) m/uL Hgb 15.4 15.1 (13.0-17.5) gm/dL Hct 45.3 44.6 (39.0-53.0) % Plt Count 293 266 (150-450) k/uL Comprehensive Metabolic Panel 03/16/23 03/17/23 Range/Units 20:16 02:07 Sodium 137 134 L (137-145) mmol/L Potassium 3.8 3.6 (3.5-5.1) mmol/L Chloride 100 100 (98-107) mmol/L Carbon Dioxide 20 L 20 L (22-30) mmol/L BUN 19 17 (9-20) mg/dL Creatinine 1.37 H 1.10 (0.66-1.25) mg/dL Glucose 96 82 (74-99) mg/dL Calcium 9.1 8.5 (8.4-10.2) mg/dL AST 40 (17-59) U/L ALT 27 (4-49) U/L Alkaline Phosphatase 73 (38-126) U/L Total Protein 7.7 (6.3-8.2) g/dL Albumin 4.1 (3.5-5.0) g/dL Current Medications Generic Name Dose Route Start Last Admin Trade Name Freq PRN Reason Stop Dose Admin Apixaban 5 mg 03/16/23 23:45 03/17/23 07:41 Apixaban 5 Mg Tab PO 5 mg BID [facility] Administration Protocol Flecainide Acetate 50 mg 03/17/23 10:30 Flecainide 50 Mg Tab PO Q12HR [facility] Metoprolol Tartrate 25 mg 03/17/23 10:30 Metoprolol Tartrate 25 Mg Tab PO BID [facility] Naloxone HCl 0.2 mg 03/16/23 22:33 Naloxone 0.4 Mg/Ml 1 Ml Vial IV Q2M PRN Opioid Reversal Pantoprazole Sodium 40 mg 03/17/23 09:00 03/17/23 07:41 Pantoprazole 40 Mg Tablet PO 40 mg DAILY RUMA Administration Intake and Output 03/16/23 03/17/23 03/17/23 22:59 06:59 14:59 Intake Total 62.75 Balance 62.75 Intake: Intake, IV Titration 62.75 Amount Diltiazem 125 mg In 62.75 Sodium Chloride 0.9% 100 ml @ 5 MG/HR 5 mls/hr IV .Q24H [facility] Rx#:[id number] Other: Weight 101.151 kg 101.151 kg Patient Weight 03/18/23 06:59 Weight 101.151 kg 03/17/23 02:07 03/17/23 02:07
[2023-03-17] MEDS: FLECAINIDE 50 MG TAB PO SCH ×2 (11:14→20:57)
[2023-03-17] MEDS: METOPROLOL TARTRATE 25 MG TAB PO SCH ×2 (11:14→20:57)
--- NOTE | 2023-03-17 11:33 | P.HPIM ---
History of Present Illness This is a pleasant 47 years old male with past medical history of multiple medical problems including A. fib and RVR on eliquis at home. Presents because of palpitation. Patient yesterday felt fast beating of his heart and he checked his pulse rate and it was [phone] came to the emergency room. Patient denies chest pain or dyspnea or coughing. No dizziness or weakness or numbness. No headache. No lightheadedness. He complains from some sinus symptoms and runny nose. No sore throat. No change in urine or bowel habits and no abdominal pain vomiting or diarrhea. No dysuria. No fever or chills. Patient denies smoking alcohol or illicit drugs. Heart rate is now but about 115 after he was started on Cardizem drip. He has leukocytosis about 24,000, down to 17,000 he got 1 dose of Augmentin and emergency room. Cholelithiasis is negative. UA is negative. Troponin 2 are negative. BNP is unremarkable liver enzymes not elevated. TSH is normal at 1.38. Chest x-ray: No acute process. EKG showing atrial fibrillation at 123. Review of Systems Review of systems CONSTITUTIONAL: No fever, no malaise, no fatigue. HEENT: No recent visual problems or hearing problems. Denied any sore throat. CARDIOVASCULAR: No orthopnea, PND, no palpitations, no syncope. PULMONARY: No shortness of breath, no cough, no hemoptysis. GASTROINTESTINAL: No diarrhea, no nausea, no vomiting, no abdominal pain. Normoactive bowel sounds. NEUROLOGICAL: No headaches, no weakness, no numbness. HEMATOLOGICAL: Denies any bleeding or petechiae. GENITOURINARY: Denies any burning micturition, frequency, or urgency. MUSCULOSKELETAL/RHEUMATOLOGICAL: Denies any joint pain, swelling, or any muscle pain. ENDOCRINE: Denies any polyuria or polydipsia. Past Medical History Past Medical History: Atrial Fibrillation, Hypertension History of Any Multi-Drug Resistant Organisms: None Reported Past Surgical History: No Surgical Hx Reported Past Anesthesia/Blood Transfusion Reactions: No Reported Reaction Past Psychological History: Anxiety Smoking Status: Former smoker Past Alcohol Use History: None Reported Past Drug Use History: None Reported - Past Family History Mother Family Medical History: AFIB Medications and Allergies Home Medications Medication Instructions Recorded Confirmed Type Apixaban [Eliquis] 5 mg PO BID 30 Days #60 tab 02/24/20 03/16/23 Rx amLODIPine [Norvasc] 10 mg PO DAILY 30 Days #30 tab 02/26/20 03/16/23 Rx Flecainide [Tambocor] 50 mg PO BID 04/03/20 03/16/23 History Losartan [Cozaar] 25 mg PO HS 03/16/23 03/16/23 History Metoprolol Succinate (ER) [Toprol 12.5 mg PO DAILY 03/16/23 03/16/23 History Xl] Omeprazole Magnesium [PriLOSEC OTC] 20 mg PO DAILY 03/16/23 03/16/23 History Allergies Allergy/AdvReac Type Severity Reaction Status Date / Time No Known Allergies Allergy Verified 03/16/23 22:15 Physical Exam Vitals: Vital Signs Temp Pulse Pulse Resp BP BP Pulse Ox 03/17/23 09:55 98.9 F 99 18 112/70 95 03/17/23 09:21 110 H 20 140/68 98 03/17/23 08:57 110 H 20 121/62 95 03/17/23 07:43 115 H 20 117/87 98 03/17/23 06:00 106 H 25 H 106/64 96 03/17/23 02:11 106 H 18 127/77 99 03/16/23 22:15 101 H 18 109/86 100 03/16/23 22:00 105 H 17 118/92 99 03/16/23 21:45 115 H 18 118/90 98 03/16/23 21:30 114 H 18 117/79 100 03/16/23 21:15 102 H 18 111/84 100 03/16/23 21:00 117 H 18 105/87 03/16/23 20:45 111 H 18 132/74 99 03/16/23 20:30 112 H 20 143/84 03/16/23 20:15 146 H 20 99/80 03/16/23 20:00 163 H 18 99/80 99 03/16/23 19:55 98 03/16/23 19:42 145 H 03/16/23 19:38 97.8 F 165 H 24 102/73 95 Intake and Output 03/16/23 03/17/23 03/17/23 22:59 06:59 14:59 Intake Total 62.75 Balance 62.75 Intake: Intake, IV Titration 62.75 Amount Diltiazem 125 mg In 62.75 Sodium Chloride 0.9% 100 ml @ 5 MG/HR 5 mls/hr IV .Q24H [facility] Rx#:[id number] Other: Weight 101.151 kg 101.151 kg GENERAL: The patient is alert and oriented x3, not in any acute distress. Well developed, well nourished. HEENT: Pupils are round and equally reacting to light. EOMI. No scleral icterus. No conjunctival pallor. Normocephalic, atraumatic. No pharyngeal erythema. No thyromegaly. CARDIOVASCULAR: S1 and S2 present. No murmurs, rubs, or gallops. PULMONARY: Chest is clear to auscultation, no wheezing , no crackles. ABDOMEN: Soft, nontender, nondistended, normoactive bowel sounds. No palpable organomegaly. MUSCULOSKELETAL: No joint swelling or deformity. EXTREMITIES: No cyanosis, clubbing, or pedal edema. NEUROLOGICAL: Gross neurological examination did not reveal any focal deficits. SKIN: No rashes. no petechiae. Results CBC & Chem 7: 03/17/23 02:07 03/17/23 02:07 Labs: Abnormal Lab Results - Last 24 Hours (Table) 03/16/23 03/16/23 03/16/23 Range/Units 20:16 20:16 20:16 WBC 24.6 H (3.8-10.6) k/uL Neutrophils # 22.7 H (1.3-7.7) k/uL Lymphocytes # 0.6 L (1.0-4.8) k/uL Monocytes # (0-1.0) k/uL APTT 35.0 H (22.0-30.0) sec Sodium (137-145) mmol/L Carbon Dioxide 20 L (22-30) mmol/L Creatinine 1.37 H (0.66-1.25) mg/dL Total Bilirubin 1.7 H (0.2-1.3) mg/dL Urine Protein (Negative) 03/16/23 03/17/23 03/17/23 Range/Units 22:02 02:07 02:07 WBC 17.7 H (3.8-10.6) k/uL Neutrophils # 15.5 H (1.3-7.7) k/uL Lymphocytes # 0.7 L (1.0-4.8) k/uL Monocytes # 1.2 H (0-1.0) k/uL APTT (22.0-30.0) sec Sodium 134 L (137-145) mmol/L Carbon Dioxide 20 L (22-30) mmol/L Creatinine (0.66-1.25) mg/dL Total Bilirubin (0.2-1.3) mg/dL Urine Protein Trace H (Negative) Thrombosis Risk Factor Assmnt - Choose All That Apply Each Factor Represents 1 point: Age 41-60 years, Obesity (BMI >25) Other Risk Factors: No Other congenital or acquired thrombophilia - If yes, enter type in comment: No Thrombosis Risk Factor Assessment Total Risk Factor Score: 2 Thrombosis Risk Factor Assessment Level: Low Risk Assessment and Plan Assessment: A. fib with RVR Sinusitis, acute for the last 3-4 days Mild leukocytosis improving most likely secondary to above Hypertension Plan: Continue the Cardizem drip Continue with metoprolol. Other cardiac medication per her dress fitter for following the case closely. Continue with eliquis Augmentin for a few days. Labs and medication were reviewed.. Continue same treatment. Continue with symptomatic treatment. Resume home medication. Monitor labs and vitals. DVT and GI prophylaxis. Further recommendations as per clinical course of the patient DVT prophylaxis: eliquis GI Prophylaxis: Ppi Prognosis is guarded
--- NOTE | 2023-03-17 14:59 | CA ---
Transthoracic Echo Report Name: Seferino Canales Age: 47 Gender: M : 1975 Exam Date: 03/17/2023 12:15 Exam Location: [facility] Ht (in): 67 Wt (lb): 223 Ordering Physician: Carley Flores Attending/Referring Phys: [id number], [employer] Teacher Amy Benitez [facility] Procedure CPT: Indications: LV function Cardiac Hx: Technical Quality: Fair Contrast 1: Total Dose (mL): Contrast 2: Total Dose (mL): MEASUREMENTS (Male / Female) Normal Values 2D ECHO LV Diastolic Diameter PLAX 4.6 cm 4.2 - 5.9 / 3.9 - 5.3 cm LV Systolic Diameter PLAX 3.3 cm IVS Diastolic Thickness 1.1 cm 0.6 - 1.0 / 0.6 - 0.9 cm LVPW Diastolic Thickness 1.1 cm 0.6 - 1.0 / 0.6 - 0.9 cm LV Relative Wall Thickness 0.5 Ascending Aorta Diameter 3.7 cm M-MODE Aortic Root Diameter MM 3.3 cm LA Systolic Diameter MM 3.9 cm LA Ao Ratio MM 1.2 AV Cusp Separation MM 2.1 cm DOPPLER AV Peak Velocity 95.0 cm/s AV Peak Gradient 3.6 mmHg AV Mean Velocity 73.4 cm/s AV Mean Gradient 2.3 mmHg AV Velocity Time Integral 16.6 cm LVOT Peak Velocity 70.3 cm/s LVOT Peak Gradient 2.0 mmHg LVOT Velocity Time Integral 12.2 cm Mitral E Point Velocity 56.8 cm/s MV Deceleration Time 199.6 ms LV E' Lateral Velocity 12.1 cm/s Mitral E to LV E' Lateral Ratio 4.7 LV E' Septal Velocity 8.9 cm/s Mitral E to LV E' Septal Ratio 6.3 TR Peak Velocity 201.0 cm/s TR Peak Gradient 16.2 mmHg Right Atrial Pressure 3.0 mmHg Pulmonary Artery Systolic Pressu 19.2 mmHg Right Ventricular Systolic Press 19.2 mmHg FINDINGS Left Ventricle Mildly increased left ventricular wall thickness. Left ventricular cavity size normal. Normal left ventricular systolic function with no obvious regional wall motion abnormalities. Left ventricular ejection fraction is estimated at 55- 60%. Right Ventricle Mild right ventricular dilatation. Right Atrium Moderate right atrial dilatation. Left Atrium Normal left atrial size. Mitral Valve Structurally normal mitral valve. Trace mitral regurgitation. Aortic Valve Aortic valve not well visualized. No aortic valve stenosis or regurgitation. Tricuspid Valve Structurally normal tricuspid valve. Trace tricuspid regurgitation. Pulmonic Valve Structurally normal pulmonic valve. Trace pulmonic regurgitation. Pericardium No pericardial effusion. Aorta Aorta at upper limits of normal. CONCLUSIONS 1. Normal left ventricle size and systolic function 2. Trace mitral and tricuspid regurgitation. Previewed by: Dr. Carline Doll MD (Electronically Signed) Final Date: 17 March 2023 14:58
[2023-03-17] MEDS: AMOXIC-POT CLAV 500-125 MG 1 EACH TAB PO SCH (20:57)
[2023-03-17] MEDS: ACETAMINOPHEN TAB 325 MG TAB PO PRN (20:57)
[2023-03-17] MEDS: LOSARTAN 25 MG TAB PO SCH (20:57)
[2023-03-18] MEDS: METOPROLOL TARTRATE 25 MG TAB PO SCH ×2 (06:35→20:27)
[2023-03-18] MEDS: FLECAINIDE 50 MG TAB PO SCH ×2 (07:43→20:26)
[2023-03-18] MEDS: AMOXIC-POT CLAV 500-125 MG 1 EACH TAB PO SCH ×2 (07:43→20:28)
[2023-03-18] MEDS: amLODIPine 10 MG TAB PO SCH (07:43)
[2023-03-18] MEDS: APIXABAN 5 MG TAB PO SCH ×2 (07:44→20:28)
[2023-03-18] MEDS: PANTOPRAZOLE 40 MG TABLET PO SCH (07:44)
[2023-03-18] MEDS: ACETAMINOPHEN TAB 325 MG TAB PO PRN ×3 (07:44→20:27)
[2023-03-18 10:05] LABS: Basophils # (A) 0.1 k/uL (0-0.2); Basophils % (A) 1 %; Eosinophils % (A) 0 %; HCT 48.3 % (39.0-53.0); HGB 16.4 gm/dL (13.0-17.5); Lymphocytes # (A) 1.5 k/uL (1.0-4.8); Lymphocytes % (A) 14 %; MCH 29.5 pg (25.0-35.0); MCHC 33.9 g/dL (31.0-37.0); MCV 87.1 fL (80.0-100.0); Monocytes # (A) 1.1 k/uL (0-1.0); Monocytes % (A) 11 %; Neutrophils # (A) 7.2 k/uL (1.3-7.7); Neutrophils % (A) 70 %; Platelet Count 313 k/uL (150-450); RBC 5.54 m/uL (4.30-5.90); RDW 12.9 % (11.5-15.5); WBC 10.3 k/uL (3.8-10.6)
[2023-03-18 10:32] LABS: African American GFR (CKD) >90 (>60 ml/min/1.73 sqM); Anion Gap 17 mmol/L; Blood Urea Nitrogen 17 mg/dL (9-20); Calcium 8.8 mg/dL (8.4-10.2); Carbon Dioxide 21 mmol/L (22-30); Chloride 100 mmol/L (98-107); Glucose 97 mg/dL (74-99); Non-African American GFR(CKD) 81 (>60 ml/min/1.73 sqM); Potassium 4.1 mmol/L (3.5-5.1); Sodium 138 mmol/L (137-145)
--- NOTE | 2023-03-18 14:46 | P.PN ---
Subjective Progress Note Date: 03/18/23 PROGRESS NOTE The patient is a 47-year-old male with a history of atrial fibrillation who had a recent upper respiratory infection and noted that he is in atrial fibrillation with rapid ventricle response. He continues to be in atrial fibrillation, the rate is under better control. He denies any chest discomfort, dizziness or palpitations. His echocardiogram showed a normal left ventricular size and systolic function Medications: Flecainide 50 mg twice a day, amlodipine 10 mg daily, losartan 25 mg daily, metoprolol 25 mg twice a day, Eliquis 5 mg twice a day PHYSICAL EXAMINATION: Blood pressure 120/70 heart rate 90 LUNGS: Clear to auscultation HEART: Irregular rate and rhythm, S1, S2. No S3. No systolic murmur ABDOMEN: Soft, nontender, no organomegaly EXTREMETIES: No edema LAB: BUN 17, creatinine 1.09, hemoglobin 16.4 IMPRESSION: 1. Atrial fibrillation, paroxysmal, back in atrial fibrillation probably because of the upper respiratory infection 2. History of hypertension 3. Recent upper respiratory infection PLAN: 1. Increase flecainide 100 mg twice a day 2. Repeat EKG in the morning 3. Increase physical activity 4. Depending on his progress further recommendations will be made Objective - Vital Signs Vital signs: Vital Signs Temp 98.4 F 03/18/23 11:42 Pulse 99 03/18/23 11:42 Resp 16 03/18/23 11:42 BP 121/74 03/18/23 11:42 Pulse Ox 96 03/18/23 11:42 FiO2 Intake & Output 03/17/23 03/18/23 03/18/23 18:59 06:59 18:59 Intake Total 842.75 480 540 Output Total 250 100 Balance 592.75 380 540 Weight 101.151 kg Intake: Intake, IV Titration 62.75 Amount Diltiazem 125 mg In 62.75 Sodium Chloride 0.9% 100 ml @ 5 MG/HR 5 mls/hr IV .Q24H [facility] Rx#:[id number] Oral 780 480 540 Output: Urine 250 100 Other: Voiding Method Toilet Toilet # Voids 2 2 - Labs CBC & Chem 7: 03/18/23 08:37 03/18/23 08:37 Labs: Abnormal Lab Results - Last 24 Hours (Table) 03/18/23 03/18/23 Range/Units 08:37 08:37 Monocytes # 1.1 H (0-1.0) k/uL Carbon Dioxide 21 L (22-30) mmol/L
[2023-03-18] MEDS: LOSARTAN 25 MG TAB PO SCH (20:27)
--- NOTE | 2023-03-18 23:11 | P.PN ---
Subjective This is a pleasant 47 years old male with past medical history of multiple medical problems including A. fib and RVR on eliquis at home. Presents because of palpitation. Patient yesterday felt fast beating of his heart and he checked his pulse rate and it was 165-1 [phone] came to the emergency room. Patient denies chest pain or dyspnea or coughing. No dizziness or weakness or numbness. No headache. No lightheadedness. He complains from some sinus symptoms and runny nose. No sore throat. No change in urine or bowel habits and no abdominal pain vomiting or diarrhea. No dysuria. No fever or chills. Patient denies smoking alcohol or illicit drugs. Heart rate is now but about 115 after he was started on Cardizem drip. He has leukocytosis about 24,000, down to 17,000 he got 1 dose of Augmentin and emergency room. Cholelithiasis is negative. UA is negative. Troponin 2 are negative. BNP is unremarkable liver enzymes not elevated. TSH is normal at 1.38. Chest x-ray: No acute process. EKG showing atrial fibrillation at 123. 03/18/2023 Patient sinusitis symptoms improving, his leukocytosis come back to normal however he has one spike of fever of 102. Patient remains on Augmentin. No other source of infection. No respiratory symptoms, no dysuria or other urinary symptoms, no diarrhea, no rash. No headache. Also patient heart dressed somewhat poorly controlled and flecainide was increased to 100 mg by cardiology team He remains on Eliquis. We'll continue to monitor and possible discharge in 24-480 Objective - Vital Signs Vital signs: Vital Signs Temp 98.9 F 03/18/23 16:47 Pulse 106 H 03/18/23 15:56 Resp 16 03/18/23 15:56 BP 114/80 03/18/23 15:56 Pulse Ox 98 03/18/23 15:56 FiO2 Intake & Output 03/18/23 03/18/23 03/19/23 06:59 18:59 06:59 Intake Total 480 599 Output Total 100 Balance 380 599 Intake: Oral 480 599 Output: Urine 100 Other: Voiding Method Toilet Toilet # Voids 2 - Exam GENERAL: The patient is alert and oriented x3, not in any acute distress. Well developed, well nourished. HEENT: Pupils are round and equally reacting to light. EOMI. No scleral icterus. No conjunctival pallor. Normocephalic, atraumatic. No pharyngeal erythema. No thyromegaly. CARDIOVASCULAR: S1 and S2 present. No murmurs, rubs, or gallops. PULMONARY: Chest is clear to auscultation, no wheezing , no crackles. ABDOMEN: Soft, nontender, nondistended, normoactive bowel sounds. No palpable organomegaly. MUSCULOSKELETAL: No joint swelling or deformity. EXTREMITIES: No cyanosis, clubbing, or pedal edema. NEUROLOGICAL: Gross neurological examination did not reveal any focal deficits. SKIN: No rashes. no petechiae. - Labs CBC & Chem 7: 03/18/23 08:37 03/18/23 08:37 Labs: Abnormal Lab Results - Last 24 Hours (Table) 03/18/23 03/18/23 Range/Units 08:37 08:37 Monocytes # 1.1 H (0-1.0) k/uL Carbon Dioxide 21 L (22-30) mmol/L Assessment and Plan Assessment: A. fib with RVR Sinusitis, acute for the last 3-4 days Mild leukocytosis improving most likely secondary to above Hypertension Plan: Continue with metoprolol. And flecainide was increased postoperative 100 mg Continue with eliquis Augmentin for a few days. Sinusitis symptom improvement. Labs and medication were reviewed.. Continue same treatment. Continue with symptomatic treatment. Resume home medication. Monitor labs and vitals. DVT and GI prophylaxis. Further recommendations as per clinical course of the patient DVT prophylaxis: eliquis GI Prophylaxis: Ppi Prognosis is guarded
[2023-03-19] MEDS: ACETAMINOPHEN TAB 325 MG TAB PO PRN ×3 (04:03→21:13)
[2023-03-19 08:26] LABS: African American GFR (CKD) 89 (>60 ml/min/1.73 sqM); Anion Gap 13 mmol/L; Blood Urea Nitrogen 17 mg/dL (9-20); Carbon Dioxide 26 mmol/L (22-30); Chloride 99 mmol/L (98-107); Glucose 81 mg/dL (74-99); Non-African American GFR(CKD) 77 (>60 ml/min/1.73 sqM); Potassium 4.3 mmol/L (3.5-5.1); Sodium 138 mmol/L (137-145)
[2023-03-19] MEDS: METOPROLOL TARTRATE 25 MG TAB PO SCH (10:41)
[2023-03-19] MEDS: APIXABAN 5 MG TAB PO SCH ×2 (10:41→20:53)
[2023-03-19] MEDS: PANTOPRAZOLE 40 MG TABLET PO SCH (10:41)
[2023-03-19] MEDS: amLODIPine 10 MG TAB PO SCH (10:41)
[2023-03-19] MEDS: FLECAINIDE 50 MG TAB PO SCH ×2 (10:41→20:53)
[2023-03-19] MEDS ORDERED: SODIUM CHLORIDE 0.9% 1,000 ML IV SCH ×2 (12:00→12:30)
[2023-03-19] MEDS: AMOXIC-POT CLAV 500-125 MG 1 EACH TAB PO SCH (12:36)
--- NOTE | 2023-03-19 13:30 | P.PN ---
Subjective HISTORY OF PRESENT ILLNESS: This is a 47-year-old male with a past medical history significant for hypertension and paroxysmal atrial fibrillation. Patient follows in the office with Dr. Smith. We have been asked to see the patient in consultation for A. fib with RVR. Patient examined at the bedside in the emergency room. The patient states a couple of days ago he noticed he had a fever up 102F. He denies having any upper respiratory symptoms. He was tested for Covid and was found to be negative. He reports he began having palpitations yesterday and he was back in atrial fibrillation. He states he took an extra dose of metoprolol but his palpitations persisted so he came to the emergency room. The patient was found to be in A. fib with RVR. He was started on IV Cardizem which is currently infusing at 5 mg an hour. He remains in atrial fibrillation at the time of examination with a heart rate in the 120s. He denies any chest pain or pressure. He denies any shortness of breath. * EKG reveals A. fib with RVR * Chest xray negative for acute process * Laboratory data: [facility] admission 24.6. Repeat 17.7. Troponin negative 3. TSH 1.380. * Current home cardiac medications include Eliquis 5 mg twice a day, flecainide 50 mg twice a day, amlodipine 10 mg daily, metoprolol succinate 12.5 mg daily, and losartan 25 mg at night * Most recent echocardiogram obtained in February 2020 revealed ejection fract ion 65-70%, mild TR * Patient underwent stress echocardiogram in October 2020 was negative for ischemia 03/18/2023 The patient is a 47-year-old male with a history of atrial fibrillation who had a recent upper respiratory infection and noted that he is in atrial fibrillation with rapid ventricle response. He continues to be in atrial fibrillation, the rate is under better control. He denies any chest discomfort, dizziness or palpitations. His echocardiogram showed a normal left ventricular size and systolic function 03/19/2023 Patient examined this morning at the bedside. Patient denies chest pain or pressure. He denies shortness of breath. Vital signs are stable. Telemetry reveals atrial fibrillation with controlled ventricular rate. Vital signs are stable. PHYSICAL EXAM: VITAL SIGNS: Reviewed. GENERAL: Well-developed in no acute distress. HEENT: Head is normocephalic. Pupils are equal, round. Sclerae anicteric. Mucous membranes of the mouth are moist. Neck supple. No JVD or thyromegaly LUNGS: Respirations even and unlabored. Lungs essentially clear to auscultation bilaterally. HEART: Irregular rate and rhythm. S1 and S2 heard. ABDOMEN: Soft. Nondistended. Nontender. EXTREMITIES: Normal range of motion. No clubbing or cyanosis. Peripheral pulses intact. No lower extremity edema NEUROLOGIC: Awake and alert. Oriented x 3. ASSESSMENT: Palpitations Paroxysmal atrial fibrillation with RVR Leukocytosis with fever at home Hypertension PLAN: Continue current cardiac medications Continue telemetry monitoring Patient to undergo cardioversion this afternoon with Dr. Smith Patient may be discharged home this afternoon from a cardiac standpoint Nurse practitioner note has been reviewed by physician. Signing provider agrees with the documented findings, assessment, and plan of care. Objective - Vital Signs Vital signs: Vital Signs Temp 99.0 F 03/19/23 04:00 Pulse 108 H 03/19/23 04:00 Resp 18 03/19/23 04:00 BP 117/92 03/19/23 04:00 Pulse Ox 98 03/19/23 04:00 FiO2 Intake & Output 03/18/23 03/19/23 03/19/23 18:59 06:59 18:59 Intake Total 599 100 Balance 599 100 Intake: Oral 599 100 Other: Voiding Method Toilet Toilet # Voids 2 1 - Labs CBC & Chem 7: 03/18/23 08:37 03/19/23 07:00 Labs: Abnormal Lab Results - Last 24 Hours (Table) 03/18/23 03/18/23 Range/Units 08:37 08:37 Monocytes # 1.1 H (0-1.0) k/uL Carbon Dioxide 21 L (22-30) mmol/L
[2023-03-19] MEDS: AMPICILLIN-SULBACTAM 3 GM in SODIUM CHLORIDE 0.9% 100 ML IVPB SCH ×3 (14:30→23:25)
[2023-03-19] MEDS ORDERED: SODIUM CHLORIDE 0.9% 500 ML 500 ML IV ONE (15:29)
[2023-03-19] MEDS ORDERED: PROPOFOL 10 MG/ML 20 ML VIAL IV ONE (15:54)
--- NOTE | 2023-03-19 16:29 | P.EPPROC ---
- EP Procedure Note Electrophysiology Procedure Note: Procedure Electrical cardioversion for persistent atrial fibrillation unresponsive to higher doses of flecainide Diagnosis Atrial fibrillation with RVR unresponsive to flecainide 100 mg twice daily Patient on ELIQUIS 5 mg twice daily History of hypertension Details Successful electrical cardioversion with a 200 J biphasic shock to sinus rhythm Plan Twelve-lead EKG Continue ELIQUIS 5 g twice daily Continue flecainide 100 mg twice daily Reduce metoprolol succinate to 12.5 mg by mouth daily line continue losartan and amlodipine Follow Dr. Smith in 2-4 weeks
[2023-03-19] MEDS: LOSARTAN 25 MG TAB PO SCH (20:53)
--- NOTE | 2023-03-19 20:53 | P.PN ---
Subjective This is a pleasant 47 years old male with past medical history of multiple medical problems including A. fib and RVR on eliquis at home. Presents because of palpitation. Patient yesterday felt fast beating of his heart and he checked his pulse rate and it was 165-1 [phone] came to the emergency room. Patient denies chest pain or dyspnea or coughing. No dizziness or weakness or numbness. No headache. No lightheadedness. He complains from some sinus symptoms and runny nose. No sore throat. No change in urine or bowel habits and no abdominal pain vomiting or diarrhea. No dysuria. No fever or chills. Patient denies smoking alcohol or illicit drugs. Heart rate is now but about 115 after he was started on Cardizem drip. He has leukocytosis about 24,000, down to 17,000 he got 1 dose of Augmentin and emergency room. Cholelithiasis is negative. UA is negative. Troponin 2 are negative. BNP is unremarkable liver enzymes not elevated. TSH is normal at 1.38. Chest x-ray: No acute process. EKG showing atrial fibrillation at 123. 03/18/2023 Patient sinusitis symptoms improving, his leukocytosis come back to normal however he has one spike of fever of 102. Patient remains on Augmentin. No other source of infection. No respiratory symptoms, no dysuria or other urinary symptoms, no diarrhea, no rash. No headache. Also patient heart dressed somewhat poorly controlled and flecainide was increased to 100 mg by cardiology team He remains on Eliquis. We'll continue to monitor and possible discharge in 24-480 03/19/2023 Patient with refractory atrial fibrillation unresponsive to beta henrietta and flecainide at 10 mg, he underwent cardioversion today with cardiology team. Remains on Eliquis and other medication as above. Patient had an episode of high fever 102 but he is been afebrile for the last 24 hours. Leukocytosis of 24,000 on admission came back to reference range currently at 10,000. Infectious disease input is appreciated And patient is started on Unasyn for his sinusitis and mild sepsis with fever and leukocytosis, responded to therapy Objective - Vital Signs Vital signs: Vital Signs Temp 98.4 F 03/19/23 08:00 Pulse 99 03/19/23 08:00 Resp 18 03/19/23 04:00 BP 128/79 03/19/23 08:00 Pulse Ox 99 03/19/23 08:00 FiO2 Intake & Output 03/18/23 03/19/23 03/19/23 18:59 06:59 18:59 Intake Total 599 100 110 Output Total 200 Balance 599 100 -90 Intake: Oral 599 100 110 Output: Urine 200 Other: Voiding Method Toilet Toilet # Voids 2 1 - Exam GENERAL: The patient is alert and oriented x3, not in any acute distress. Well developed, well nourished. HEENT: Pupils are round and equally reacting to light. EOMI. No scleral icterus. No conjunctival pallor. Normocephalic, atraumatic. No pharyngeal erythema. No thyromegaly. CARDIOVASCULAR: S1 and S2 present. No murmurs, rubs, or gallops. PULMONARY: Chest is clear to auscultation, no wheezing , no crackles. ABDOMEN: Soft, nontender, nondistended, normoactive bowel sounds. No palpable organomegaly. MUSCULOSKELETAL: No joint swelling or deformity. EXTREMITIES: No cyanosis, clubbing, or pedal edema. NEUROLOGICAL: Gross neurological examination did not reveal any focal deficits. SKIN: No rashes. no petechiae. - Labs CBC & Chem 7: 03/18/23 08:37 03/19/23 07:00 Assessment and Plan Assessment: A. fib with RVR Sinusitis, acute for the last 3-4 days Mild sepsis with fever and leukocytosis, mostly secondary to above. No other obvious source of infection Hypertension Plan: Continue with metoprolol. And flecainide was increased to 10 mg Continue with eliquis BC Augmentin and start Unasyn. Sinusitis symptom improvement. Labs and medication were reviewed.. Continue same treatment. Continue with symptomatic treatment. Resume home medication. Monitor labs and vitals. DVT and GI prophylaxis. Further recommendations as per clinical course of the patient DVT prophylaxis: eliquis GI Prophylaxis: Ppi Prognosis is guarded
[2023-03-20] MEDS: AMPICILLIN-SULBACTAM 3 GM in SODIUM CHLORIDE 0.9% 100 ML IVPB SCH ×2 (04:33→11:32)
[2023-03-20] MEDS: ACETAMINOPHEN TAB 325 MG TAB PO PRN ×2 (04:33→11:33)
--- NOTE | 2023-03-20 08:46 | P.CONS ---
History of Present Illness - Reason for Consult Consult date: 03/19/23 - History of Present Illness Patient is a 47-year-old male with a past medical history pending for atrial fibrillation hypertension presenting to the ER on 03/16/2023 for evaluation of palpitation and noticed to having elevated heart rate of 130-160 on his home blood pressure machine patient was complaining of some associated pressure and mild shortness of breath patient also was complaining of a fever for a day or 2 before presentation to the hospital and seem to have some swelling and redness to the left periorbital area patient also has been complaining of dental infection and need for extraction of his teeth and some rotation to the upper jaw area patient on presentation to the hospital was afebrile however he did spike a fever of 102 F yesterday morning patient was not hypotensive or hypoxic patient did have white count 24.6 on admission is down to 10.3 patient did have a normal creatinine troponin has been negative liver enzymes are normal urine was negative COVID testing was negative patient did have a chest x-ray no acute cardiopulmonary disease he did have an echocardiogram normal ventricle size and systolic function trace mitral and tricuspid regurgitation infectious he was consulted because of his fever and antibiotic therapy currently on oral Augmentin Past Medical History Past Medical History: Atrial Fibrillation, Hypertension History of Any Multi-Drug Resistant Organisms: None Reported Past Surgical History: No Surgical Hx Reported Past Anesthesia/Blood Transfusion Reactions: No Reported Reaction Past Psychological History: Anxiety Smoking Status: Former smoker Past Alcohol Use History: None Reported Past Drug Use History: None Reported - Past Family History Mother Family Medical History: AFIB Medications and Allergies Home Medications Medication Instructions Recorded Confirmed Type Apixaban [Eliquis] 5 mg PO BID 30 Days #60 tab 02/24/20 03/16/23 Rx amLODIPine [Norvasc] 10 mg PO DAILY 30 Days #30 tab 02/26/20 03/16/23 Rx Losartan [Cozaar] 25 mg PO HS 03/16/23 03/16/23 History Metoprolol Succinate (ER) [Toprol 12.5 mg PO DAILY 03/16/23 03/16/23 History Xl] Omeprazole Magnesium [PriLOSEC OTC] 20 mg PO DAILY 03/16/23 03/16/23 History Flecainide [Tambocor] 100 mg PO Q12HR #180 tablet 03/19/23 Rx Allergies Allergy/AdvReac Type Severity Reaction Status Date / Time No Known Allergies Allergy Verified 03/16/23 22:15 Physical Exam Vitals: Vital Signs Temp Pulse Resp BP Pulse Ox 03/19/23 08:00 98.4 F 99 128/79 99 03/19/23 04:00 99.0 F 108 H 18 117/92 98 03/19/23 02:00 98 18 03/19/23 00:00 98.3 F 98 18 115/82 98 03/18/23 20:00 98.2 F 118 H 18 112/79 98 03/18/23 16:47 98.9 F 03/18/23 15:56 99.2 F 106 H 16 114/80 98 03/18/23 11:42 98.4 F 99 16 121/74 96 Intake and Output 03/18/23 03/19/23 03/19/23 22:59 06:59 14:59 Intake Total 159 Output Total 200 Balance 159 -200 Intake: Oral 159 Output: Urine 200 Other: Voiding Method Toilet Toilet # Voids 1 Results CBC & Chem 7: 03/18/23 08:37 03/19/23 07:00 Labs: Abnormal Lab Results - Last 24 Hours (Table) 03/18/23 Range/Units 08:37 Carbon Dioxide 21 L (22-30) mmol/L Assessment and Plan Plan: 1patient with an episode of fever and also have elevated white count did have dental caries irritation to the upper jaw likely the source of his fever and elevated white count and need to cover for the polymicrobial oral ryann, currently do not have any other obvious focus of infection lungs were clear to auscultation chest x-ray was negative abdominal soft on clinical examination, UA was negative and tested negative for COVID-19 2-we will switch over Augmentin to Unasyn 3 g every 6 hours and wait for the cultures to be finalized if negative will be able to finish therapy with oral Augmentin We will follow on clinical condition and cultures to further adjust medication if needed Thank you for this consultation we will follow the patient along with you Dictation was produced using [employer] dictation software. please excuse any grammatical, word or spelling errors. Time with Patient: Greater than 30
[2023-03-20] MEDS ORDERED: METOPROLOL SUCCINATE (ER) 25 MG TAB.ER.24H PO SCH (09:00)
[2023-03-20] MEDS: FLECAINIDE 50 MG TAB PO SCH (09:13)
[2023-03-20] MEDS: PANTOPRAZOLE 40 MG TABLET PO SCH (09:13)
[2023-03-20] MEDS: amLODIPine 10 MG TAB PO SCH (09:13)
[2023-03-20] MEDS: APIXABAN 5 MG TAB PO SCH (09:13)
[2023-03-20 12:21] VITALS: BP 122/79; PULSE 75; RESP 16; TEMP 97.7
--- NOTE | 2023-03-21 07:59 | P.DS ---
Providers Date of admission: 03/16/23 22:34 Attending physician: Kurtis Haq Consults: 03/16/23 22:33 Consult Physician Urgent Consulting Provider: [facility] Consult Reason/Comments: afib with rvr Do you want consulting provider notified?: Yes 03/18/23 15:38 Consult Physician Routine Consulting Provider: Lance Noel Reason/Comments: fever Do you want consulting provider notified?: Yes Primary care physician: Annamarie Ling Hospital Course: Diagnoses: A. fib with RVR, status post cardioversion, resolved Sinusitis, acute for the last 3-4 days Mild sepsis with fever and leukocytosis, mostly secondary to above. No other obvious source of infection Hypertension Hospital course: This is a pleasant 47 years old male with past medical history of multiple medical problems including A. fib and RVR on eliquis at home. Presents because of palpitation. Patient was found to have A. fib and RVR, his been evaluated by cardiology team, he was kept on metoprolol, losartan and Norvasc for blood pressure heart rate controlled his home dose of Flaicainide was increased to 50 mg of 200 mg with no resolution of his atrial fibrillation and RVR therefore he underwent cardioversion on 03/19 with resolution of his tachycardia and currently his heart rate is controlled and his symptoms resolved and he was cleared for discharge by email production consultant. Also he has evidence of pharyngitis with inflammation of the soft palate obvious on examination and besides some signs symptoms of sinusitis, mild fever and leukocytosis that responded to treatment with Augmentin/units seen. Aerated by infectious disease team and he was cleared for discharge 10 days with Augmentin and close outpatient follow-up. The day of discharge patient has only mild sinus symptoms like mild sore throat. All other symptoms has resolved with no chest pain dyspnea. No new complaint. Patient was cleared for discharge by cardiology and infectious disease team as above. Problems and management plan were discussed with the patient and he verbalized understanding and acceptance Patient was found stable and can be discharged home in guarded prognosis however he needs follow-up as an outpatient. Patient was instructed to follow up with PCP Dr. Sands within one week and patient agrees Patient was instructed to follow up with his email production consultant Dr. Sellers in 4 weeks and with infectious disease Dr. Noel in 7-10 days and he agrees to call make his own appointments Physical exam -Gen: patient is a AAOx3, no distress. pharyngitis and inflammation of the soft phalanx CVS: S1-S2, RRR, no murmur Lungs: B/L CTA, no wheezing Abdomen: soft, no distention, no tenderness, positive bowel sounds Extremity: no leg edema or induration Time spent more than 35 minutes Patient Condition at Discharge: Stable Plan - Discharge Summary Discharge Rx Participant: No New Discharge Prescriptions: New Flecainide [Tambocor] 100 mg PO Q12HR #180 tablet Amoxic-Pot Clav 875-125Mg [Augmentin 875-125] 1 tab PO Q12HR 10 Days #20 tab Acetaminophen Tab [Tylenol] 650 mg PO Q6HR PRN tab PRN Reason: Fever And/ Or Pain Continue Apixaban [Eliquis] 5 mg PO BID 30 Days #60 tab amLODIPine [Norvasc] 10 mg PO DAILY 30 Days #30 tab Metoprolol Succinate (ER) [Toprol XL] 12.5 mg PO DAILY Losartan [Cozaar] 25 mg PO HS Omeprazole Magnesium [PriLOSEC OTC] 20 mg PO DAILY Discontinued Flecainide [Tambocor] 50 mg PO BID Discharge Medication List Apixaban [Eliquis] 5 mg PO BID 30 Days #60 tab 02/24/20 [Rx] amLODIPine [Norvasc] 10 mg PO DAILY 30 Days #30 tab 02/26/20 [Rx] Losartan [Cozaar] 25 mg PO HS 03/16/23 [History] Metoprolol Succinate (ER) [Toprol XL] 12.5 mg PO DAILY 03/16/23 [History] Omeprazole Magnesium [PriLOSEC OTC] 20 mg PO DAILY 03/16/23 [History] Flecainide [Tambocor] 100 mg PO Q12HR #180 tablet 03/19/23 [Rx] Acetaminophen Tab [Tylenol] 650 mg PO Q6HR PRN tab 03/20/23 [Rx] Amoxic-Pot Clav 875-125Mg [Augmentin 875-125] 1 tab PO Q12HR 10 Days #20 tab 03/20/23 [Rx] Follow up Appointment(s)/Referral(s): Reggie Smith MD [STAFF PHYSICIAN] - 4 Weeks (April 19, 8:30) Annamarie Ling MD [Primary Care Provider] - 1-2 days (March 27 3:30) Lance Noel MD [STAFF PHYSICIAN] - 10 Days Patient Instructions/Handouts: A-fib (Atrial Fibrillation) (DC) Activity/Diet/Wound Care/Special Instructions: Increase flecainide 2 100 mg by mouth twice a day All other medications remain unchanged including ELIQUIS and metoprolol Continue losartan and amlodipine heart healthy diet activity is restricted till you see your doctor Discharge Disposition: HOME SELF-CARE
== END 2023-03-20 12:45 | disposition home or self-care (01) | DRG 720 ==
LOC: EC 19:32 → 3SCARD 22:34
PROVIDERS: ADMIT Internal Medicine; ATTEND Internal Medicine
PROC: 5A2204Z Restoration of Cardiac Rhythm, Single (ICD-10-PCS; principal; 2023-03-19 12:30)
DX: A41.9 Sepsis, unspecified organism (principal); I48.0 Paroxysmal atrial fibrillation; D72.829 Elevated white blood cell count, unspecified; I10 Essential (primary) hypertension; F41.9 Anxiety disorder, unspecified; Z20.822 Contact with and (suspected) exposure to COVID-19; I49.3 Ventricular premature depolarization; J06.9 Acute upper respiratory infection, unspecified; Z79.01 Long term (current) use of anticoagulants; Z87.891 Personal history of nicotine dependence; Z79.899 Other long term (current) drug therapy
CPT/HCPCS: 36415; 71046; 80048; 80053; 81003; 83735; 84443; 84484; 85025; 85610; 85730; 87635; 92960; 93005; 93306; 96361; 96365; 96366; 99291